=== PATIENT | male | born 1925 | race Caucasian/White ===

== ENCOUNTER 2016-06-13 13:26 | Inpatient (IN) | payer MEDICARE ==
[2016-06-13] VITALS (8 sets, daily range): BP systolic 97–110; BP diastolic 59–72; PULSE 80–97; RESP 18–28; O2SAT 88–98
[~2016-06-13] VITALS: Ht 175.3 cm; Wt 73.4 kg
[~2016-06-13 13:26] MED LIST: Ketamine 10 mg/mL 20 mL Inj ONE; fentaNYL-PF 50 mCg/mL 2 mL Inj ONE
[2016-06-13 14:08] LABS: BASOPHILS % (AUTO) 0.1 % (0-3); EOSINOPHILS % (AUTO) 0 % (0-5); MONOCYTES % (AUTO) 5.1 % (4-12); Mean Corpuscular Hemoglobin 30.5 pg (27.0-35.0); Mean Corpuscular Volume 93.5 fL (81-100); Platelet Count 124 bil/L (150-400)
--- NOTE | 2016-06-13 14:22 | ED.REPORT ---
HPI-General Illness Date of Service Jun 13, 2016 ED Provider: Peewee Loza DO Patient is an 89 year old male who presents to the ED via EMS s/p an unwitnessed ground level fall. He was using his walker when he bumped into something, tripped, and fell. Associated symptoms include left hip pain. He denies head trauma, neck pain, LOC, or any other symptoms. He is not on blood thinners but does take 81 mg aspirin every day. He denies being sick recently. Per family, his speech is slow and cognition is slightly altered. His caregivers have all had the flu. Nursing Notes Stated Complaint: GROUND LEVEL FALL Chief Complaint: Multiple Trauma/Fall Nursing Notes Reviewed: Yes Allergies: Coded Allergies: No Known Allergies (Unverified , 06/13/16) No Active Prescriptions or Reported Meds General Time Seen by MD: 14:18 Chief Complaint Other (L hip pain) Hx Obtained From: Patient Arrived By: Ambulance Past Medical History Past Medical History Denies Past Surgical History Denies Smoking History Unknown if Ever Smoker Social History Other Social History: Good social support, Ambulatory Status Walker Review of Systems Full Review of Systems Musculoskeletal: Reports: Joint pain (L hip), Denies: Neck pain Neurologic: Denies: Change LOC, Headache Complete sys rev & neg: except as marked. Physical Exam Vital Signs Vital Signs Date Time Temp Pulse Resp B/P Pulse Ox O2 Delivery O2 Flow Rate FiO2 06/13/16 16:24 87 26 105/65 97 Nasal Cannula 3 06/13/16 16:08 85 23 104/59 97 Nasal Cannula 3 06/13/16 15:07 82 23 97/69 98 Nasal Cannula 3 06/13/16 14:43 82 28 101/60 96 Nasal Cannula 3 06/13/16 13:56 94 28 100/72 95 Nasal Cannula 3 06/13/16 13:27 36.9 97 20 110/70 88 Room Air Initial VS: Reviewed General/Constitutional: Well-developed, Well-nourished Head / Eyes: Atraumatic, Normocephalic Neck: Full range of motion Skin: Warm, Dry Neurologic: Alert, Oriented, Nonfocal Psychiatric: Mood/affect normal, Behavior normal, Normal thought content Resp Distress / Stridor: Positive: Resp distress mild Hypoxic Left Hip: Positive: Tenderness present... L hip is neurovascularly intact. Pain with axial rotaion. Interpretation & Diagnostics Lab Results Interpretation Result Diagram: 06/13/16 1340 06/13/16 1340 Test 06/13/16 13:40 White Blood Count 14.7th/mm3 (3.8-10.1) Red Blood Count 4.46mil/mm3 (4.40-5.80) Hemoglobin 13.6g/dL (13.8-17.2) Hematocrit 41.7% (41.0-50.0) Mean Corpuscular Volume 93.5fL (81-100) Mean Corpuscular Hemoglobin 30.5pg (27.0-35.0) Mean Corpuscular Hemoglobin Concent 32.6% (32.0-37.0) Red Cell Distribution Width 13.2% (12.3-15.4) Platelet Count 124bil/L (150-400) Neutrophils (%) (Auto) 91.0% (40-74) Lymphocytes (%) (Auto) 3.3% (14-46) Monocytes (%) (Auto) 5.1% (4-12) Eosinophils (%) (Auto) 0% (0-5) Basophils (%) (Auto) 0.1% (0-3) Sodium Level 139mEq/L (134-144) Potassium Level 4.0mEq/L (3.5-5.2) Chloride Level 101mEq/L (97-108) Carbon Dioxide Level 25mmol/L (18-29) Blood Urea Nitrogen 19mg/dL (8-27) Creatinine 0.62mg/dL (0.76-1.27) Estimat Glomerular Filtration Rate 130mL/min (>59) Glucose Level 129mg/dL (60-99) Lactic Acid Level 2.4mmol/L (0.4-2.0) Calcium Level 8.8mg/dL (8.5-10.1) Total Bilirubin 0.6mg/dL (0.0-1.2) Aspartate Amino Transf (AST/SGOT) 34U/L (0-50) Alanine Aminotransferase (ALT/SGPT) 18U/L (0-44) Alkaline Phosphatase 98U/L (25-160) Troponin T 0.025ug/L (0.0-0.011) Pro-B-Type Natriuretic Peptide 920.1pg/mL (0-486) Total Protein 6.9g/dL (6.4-8.4) Albumin 3.5g/dL (3.4-5.0) Lab Results Interpretation: Flu A + ECG Interpretation ECG Interpretation: Sinus rate 88 Atrial premature complex Abnormal R wave progression, early transition. Time: 14:19 Interpreted by: ED physician X-Ray Chest Interpretation Chest Xray Interpretation: IMPRESSION: 1. Right greater than left interstitial prominence probable with atypical pneumonia versus pulmonary fibrosis. Please correlate with clinical data. 2. No acute traumatic injury identified. Dictated by: Charlotte Macedo MD, PhD on 06/13/2016 at 14:50 Approved by: Charlotte Macedo MD, PhD on 06/13/2016 at 14:50 View: Portable, 1 view Interpretation / Wet Read by: Interpret - Radiologist X-Ray Interpretation Xray Interpretation: IMPRESSION: Transcervical left hip fracture. Dictated by: Charlotte Macedo MD, PhD on 06/13/2016 at 14:49 Approved by: Charlotte Macedo MD, PhD on 06/13/2016 at 14:49 X-Ray Ordered: Hip left Interpretation / Wet Read by: Interpret - Radiologist Re-Eval/Medical Decision Med Decision/Clinical Course Hip fracture likely due to influenza a and possibly pneumonia. Patient will be admitted. Time of Eval: 15:00 Re-Evaluation/Progress Note: Discussed imaging results and desire for admission. Patient understands and agrees with plan. All questions addressed at this time. 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 Accepts admit Counseled Regarding: Diagnosis, Lab results, Need for admission Discharge & Departure Primary Impression: Hip fracture, left Encounter type: initial encounter Additional Impressions: Pneumonia Pneumonia type: due to unspecified organism Laterality: unspecified laterality Lung location: unspecified part of lung Qualified Code: B99.9 - Unspecified infectious disease Influenza A Hypoxia Disposition: ADMITTED TO HOSPITAL Referrals: Eliud Boston MD (PCP) Scribe Attestation Portions of this note were transcribed by Mani Jerome. IDr. Loza personally performed the history, physical exam and medical decision-making; I reviewed and confirmed the accuracy of the information in the transcribed note. Signed by: Mani Jerome 06/13/16, 1394 copies to: Eliud Boston MD, Timothy S DO Jun 13, 2016 14:22 MANI JEROME Jun 13, 2016 14:54
[2016-06-13 14:34] LABS: TROPONIN T 0.025 ug/L (0.0-0.011)
--- NOTE | 2016-06-13 14:50 | DRSVH ---
PROCEDURE: X-RAY PELVIS W/LAT HIP (LT) ([id number]) INDICATIONS: LEFT HIP PAIN TECHNIQUE: AP pelvis with lateral view(s) of the left hip(s). COMPARISON: None. FINDINGS: Bones: Transcervical left hip fracture is noted. The there is mild varus angulation and proximal disp lacement of the distal fracture fragment. Soft tissues: The visualized bowel gas pattern is normal. No suspicious soft tissue calcifications. IMPRESSION: Transcervical left hip fracture. Dictated by: Charlotte Macedo MD, PhD on 06/13/2016 at 14:49 Approved by: Charlotte Macedo MD, PhD on 06/13/2016 at 14:49
--- NOTE | 2016-06-13 14:52 | DRSVH ---
PROCEDURE: X-RAY CHEST ONE VIEW, PORTABLE ([id number]) INDICATIONS: Tachypnic TECHNIQUE: One view of the chest was acquired. COMPARISON: None. FINDINGS: Surgical changes and devices: None. Lungs and pleura: No pleural effusions or pneumothorax. Interstitial prominence the lungs bilaterall y right greater than left represent atypical pneumonia or chronic pulmonary fibrosis. Mediastinum: Mediastinal contours appear normal. Heart size is normal. Bones and chest wall: No suspicious bony lesions. Overlying soft tissues appear unremarkable. IMPRESSION: 1. Right greater than left interstitial prominence probable with atypical pneumonia versus pulmonary fibrosis. Please correlate with clinical data. 2. No acute traumatic injury identified. Dictated by: Charlotte Macedo MD, PhD on 06/13/2016 at 14:50 Approved by: Charlotte Macedo MD, PhD on 06/13/2016 at 14:50
[2016-06-13] MEDS ORDERED: Ondansetron 2 mg/mL 2 mL Inj IVPUSH PRN ×2 (15:00→18:05)
[2016-06-13] MEDS ORDERED: 0.9% Sodium Chloride 1,000 ML IV ONE (15:15)
[2016-06-13] MEDS ORDERED: 0.9% Sodium Chloride 1,000 ML IV SCH ×2 (15:15→18:01)
[2016-06-13] MEDS ORDERED: Azithromycin Inj 500 MG in Dextrose 5% w/Vial Mate 250 ML IV ONE (15:35)
[2016-06-13] MEDS ORDERED: cefTRIAXone Inj 2,000 MG in IV Premix 1 EACH IV ONE (15:35)
[2016-06-13] MEDS ORDERED: Alum-Mag Hydrox-Simeth 30 mL Suspension PO PRN ×2 (18:05→20:30)
--- NOTE | 2016-06-13 18:54 | DRSVH ---
PROCEDURE: CT HIP LEFT W/O CONTRAST ([id number]) INDICATIONS: Left hip fracture. TECHNIQUE: Noncontrast 3 mm axial sections acquired through the bony pelvis. Additional 3 mm axial sections acq uired through the symptomatic hip joint, with coronal and sagittal reformats. COMPARISON: [facility], CR, XR HIP 2VW LT, 06/13/2016, 17:24. FINDINGS: Image quality: Excellent. Bones: There is a subcapital fracture of the left femoral neck with impaction by approximately 1 cm. There is diffuse osteopenia. No definite additional fractures. There is osteophytosis of the left femoral head neck junction a mild superior joint space narrowing is noted. Visualized lumbar spine d emonstrates degenerative changes including moderate degenerative disc disease at L5-S1. Soft tissues: No free fluid within the visualized pelvis. There is a contour irregularity on the pos terior bladder compatible with a bladder diverticulum. Visualized bowel loops appear normal in calib er. No discrete soft tissue hematomas identified. IMPRESSION: 1. Impacted subcapital left femoral neck fracture. Dictated by: Kendell Sosa M.D. on 06/13/2016 at 18:52 Approved by: Kendell Sosa M.D. on 06/13/2016 at 18:52
--- NOTE | 2016-06-13 20:26 | PCM.HPMED ---
Subjective Date of Service Jun 13, 2016 Primary Provider: Admitting Physician: Naveed Herrera MD Primary Care Physician: Eliud Boston MD Attending Physician: Naveed Herrera MD Chief Complaint: Fell and broke his left hip HISTORY was OBTAINED FROM PATIENT / [employer] NOTES History of present illness 89-year-old male, uses walker, bumped into something , fell on his left hip. no associated malaise recently. He denies SOB/cough/ chest pain. Pt has obvious loose cough on exam. He is the sole caregiver of who was admitted w/ fever. likely an inaccurate historian. In ER, 88% RA, mildly elevated trop, Influenza A positive, infiltrates on chest x-ray. s/p 1L NS bolused w/ stable BP. On the talley, throughout past 8 hours, IVF were changed/increased, though HDS in the talley, Duonebs received. 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 for fever No Known Allergies (Unverified , 06/13/16) No medications Past Medical History denies Past Surgical History Denies Allergies Coded Allergies: No Known Allergies (Unverified , 06/13/16) PMH Social History Smoking Status: Unknown if Ever Smoker Exam Vital Signs Vital Sign - Last Date Time Temp Pulse Resp B/P Pulse Ox O2 Delivery O2 Flow Rate FiO2 06/13/16 18:41 36.3 80 18 110/61 91 Nasal Cannula 2.00 Lab and Diagnostics Labs Exam on admission 2-3L NC, loose cough, wheeze right greater than left NAD A and O x 3 mood affect WNL NC/AT no icterus no injected eyes EOMI PERRL /no pharyngeal lesions/ no oral lesions / hearing intact Supple neck equal chest rise / no accessory muscle use / speaks in full sentences / no rrw RRR S1 S2 / no mrg / 2+ radial pulses Soft nt nd + BS no hepatosplenomegaly No edema no cyanosis no ecchymosis thighs No rash / no jaundice GARRETT 2+ DP bilateral pulses EKG sinus arrythmia 88 UA pending Trop elevated x 1 lactic acidosis resolved procalcitonin pending sputum cx pending PROCEDURE: X-RAY CHEST ONE VIEW, PORTABLE ([id number]) INDICATIONS: Tachypnic TECHNIQUE: One view of the chest was acquired. COMPARISON: None. FINDINGS: Surgical changes and devices: None. Lungs and pleura: No pleural effusions or pneumothorax. Interstitial prominence the lungs bilaterally right greater than left represent atypical pneumonia or chronic pulmonary fibrosis. Mediastinum: Mediastinal contours appear normal. Heart size is normal. Bones and chest wall: No suspicious bony lesions. Overlying soft tissues appear unremarkable. IMPRESSION: 1. Right greater than left interstitial prominence probable with atypical pneumonia versus pulmonary fibrosis. Please correlate with clinical data. 2. No acute traumatic injury identified. PROCEDURE: CT HIP LEFT W/O CONTRAST ([id number]) INDICATIONS: Left hip fracture. TECHNIQUE: Noncontrast 3 mm axial sections acquired through the bony pelvis. Additional 3 mm axial sections acquired through the symptomatic hip joint, with coronal and sagittal reformats. COMPARISON: [facility], CR, XR HIP 2VW LT, 06/13/2016, 17:24. FINDINGS: Image quality: Excellent. Bones: There is a subcapital fracture of the left femoral neck with impaction by approximately 1 cm. There is diffuse osteopenia. No definite additional fractures. There is osteophytosis of the left femoral head neck junction a mild superior joint space narrowing is noted. Visualized lumbar spine demonstrates degenerative changes including moderate degenerative disc disease at L5-S1. Soft tissues: No free fluid within the visualized pelvis. There is a contour irregularity on the posterior bladder compatible with a bladder diverticulum. Visualized bowel loops appear normal in caliber. No discrete soft tissue hematomas identified. IMPRESSION: 1. Impacted subcapital left femoral neck fracture. Result Diagram: 06/13/16 1340 06/13/16 1340 Assessment & Plan Active issues and reason for admission 89-year-old male with left hip fracture, concurrent pulmonary infiltrates with influenza A positive, anticipate delay in orthopedic repair due to pneumonia/ influenza, high aspiration risk based on loose cough, hemodynamically stable. -- Dr. Alex Peter orthopedics -- UA pending Influenza, infiltrates -- Tamiflu / rocephine / azithro / duonebs / incentive spirometer -- pending sputum culture elevated trop, sinus arrythmia IVF were increased during the night, s/p 1L boluse in ER -- pending BNP, monitor for fluid overload -- trend trop -- monitor for evidence for a fib Chronic issues known prior to admission, present on admission patient indicated none, likely inaccurate historian Diet regular DVT prophylaxis lovenox Code DNR Disposition inpatient. has been admitted for fever. 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 Assessment and plan were discussed with patient Naveed Herrera MD Jun 13, 2016 20:26 Naveed Herrera MD Jun 13, 2016 20:26
[2016-06-13] MEDS ORDERED: D5 0.45% NaCl + KCl 20 mEq/L 500 ML IV SCH (20:30)
[2016-06-13] MEDS: Albuterol-Ipratropium 3 mL Inhalation Solution NEB SCH (22:47)
[2016-06-13] MEDS ORDERED: Adenosine 3 mg/mL 2 mL Inj IVPUSH ONE (22:56)
[2016-06-14] VITALS (16 sets, daily range): BP systolic 94–119; BP diastolic 60–75; PULSE 65–168; RESP 18–20; O2SAT 90–100
[2016-06-14] MEDS ORDERED: 0.9% Sodium Chloride 1,000 ML IV SCH (00:40)
--- NOTE | 2016-06-14 00:58 | CONS ---
[address] [address] CONSULTATION REPORT PATIENT: SATURNINO RUBIO : 1925 MR#: [id number] ADMIT: 06/13/2016 JOB ID: [id number] DATE OF SERVICE: 06/14/2015 ICD-10 CODE: 94805-03. HISTORY OF PRESENT ILLNESS: This is an 89-year-old male who had tripped and had a ground level fall, and he bumped into something, sustaining an impacted left femoral neck fracture. Denied any loss of consciousness. The patient has recently had the flu. PAST MEDICAL HISTORY: The patient denies any prior surgeries. SOCIAL HISTORY: He is . Lives with his . He normally ambulates with a walker. Smoking history unknown. ALLERGIES: The patient has no known allergies. REVIEW OF SYSTEMS: Pertinent for left hip pain. Respiratory: Has some shortness of breath with pulmonary infiltrates and recent flu. Heart: No chest pain. GI: No nausea, vomiting. : No dysuria. PHYSICAL EXAMINATION: A 71 kg male, 175 cm. Blood pressure is 116/69, temperature is 99.7, pulse 88. Pulse ox is 91% O2 on 2 L. Left leg is not obviously shortened. He is resting comfortably in bed. The left hip skin is dry and intact. The patient is able to move both upper and lower extremities. Has pain with any attempted hip motion but he is able to move his feet. The chest x-ray shows that the patient does have infiltrates bilaterally right worse than left. X-rays of the left of the pelvis and left hip show that he has an impacted left femoral neck fracture. CT scan also shows an impacted left femoral neck fracture. White count 14,700, hemoglobin 13.6, hematocrit 41.7; 91% neutrophils. Sodium 139, potassium 4.0 chloride 101, CO2 25, BUN 19, creatinine 0.62. Random glucose is 129. Lactic acid elevated at 2.4. Troponin elevated at 0.28. [id number] protein is elevated at 920.1. IMPRESSION: 1. Impacted left femoral neck fracture. 2. Pneumonia with underlying influenza. PLAN: The patient currently is on Tamiflu for documented influenza from a mouth swab. He also is febrile with decreased oxygenation on his pulse ox. He also has elevated BNP and elevated troponin levels. Lactic acid is also elevated. The patient is not stable from a medical standpoint to proceed with surgical intervention tomorrow. Discussed the case with the medical physician that admitted the patient. Hopefully, the patient may be able to be cleared sometime later this week. He certainly could be done sometime in the afternoon on or Monday if he clinically improves. Patient needs to remain at strict bed rest. I suggest that they order a baseline PT, PTT and INR. He also will need to be typed and screened pending surgery. Will be followed as an Orthopedic consult.
[2016-06-14] MEDS: 0.9% Sodium Chloride 500 ML IV SCH ×3 (02:34→15:54)
[2016-06-14 03:00] LABS: BASOPHILS % (AUTO) 0.1 % (0-3); EOSINOPHILS % (AUTO) 0 % (0-5); MONOCYTES % (AUTO) 4.1 % (4-12); Mean Corpuscular Hemoglobin 30.2 pg (27.0-35.0); Mean Corpuscular Volume 95.8 fL (81-100); NEUTROPHILS % (AUTO) 88.6 % (40-74); Platelet Count 96 bil/L (150-400)
--- NOTE | 2016-06-14 03:07 | NUR ---
ADMIT from ED Patient arrived 1840 from ED, 3L O2 NC, NS @ 100ml/hr per report. VSS, Tele on @ 0045. NPO changed to general diet as surgery cancelled r/t positive for influenza. Confusion with fall history, alert to self and place. 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
[2016-06-14] MEDS: Albuterol-Ipratropium 3 mL Inhalation Solution NEB SCH ×4 (07:43→20:07)
--- NOTE | 2016-06-14 08:00 | PCM.PNMED ---
Subjective Date of Service Jun 14, 2016 Subjective Patient is in bed and alert. He denies any chest pain. Does have a cough. Patient does have a history of smoking but quit about age 42. Denies any fevers or chills. Exam Vital Signs Vital Sign - Last Date Time Temp Pulse Resp B/P Pulse Ox O2 Delivery O2 Flow Rate FiO2 06/14/16 07:46 72 18 97 Nasal Cannula 2.00 06/14/16 05:43 37.0 119/73 Intake and Output 06/13/16 06/13/16 06/14/16 Cumulative From/Thru 15:00 23:00 07:00 06/13/16 13:27 - 06/14/16 06:24 Intake Total 2000 ml 1713 ml 3713 ml Balance 2000 ml 1713 ml 3713 ml Intake Oral 100 ml 100 ml IV Total 2000 ml 1613 ml 3613 ml # Voids 1 1 Exam Head: Normocephalic atraumatic Chest: Diffuse rhonchi noted Cor: Regular rate and rhythm S1-S2 Abdomen: Soft nontender bowel sounds present Extremities: No pedal edema bilaterally Lab and Diagnostics Laboratory Tests 72 Hours Test 06/13/16 13:40 06/14/16 00:50 06/14/16 02:35 White Blood Count 14.7th/mm3 (3.8-10.1) 10.4th/mm3 (3.8-10.1) Red Blood Count 4.46mil/mm3 (4.40-5.80) 4.04mil/mm3 (4.40-5.80) Hemoglobin 13.6g/dL (13.8-17.2) 12.2g/dL (13.8-17.2) Hematocrit 41.7% (41.0-50.0) 38.7% (41.0-50.0) Mean Corpuscular Volume 93.5fL (81-100) 95.8fL (81-100) Mean Corpuscular Hemoglobin 30.5pg (27.0-35.0) 30.2pg (27.0-35.0) Mean Corpuscular Hemoglobin Concent 32.6% (32.0-37.0) 31.5% (32.0-37.0) Red Cell Distribution Width 13.2% (12.3-15.4) 13.5% (12.3-15.4) Platelet Count 124bil/L (150-400) 96bil/L (150-400) Neutrophils (%) (Auto) 91.0% (40-74) 88.6% (40-74) Lymphocytes (%) (Auto) 3.3% (14-46) 7.1% (14-46) Monocytes (%) (Auto) 5.1% (4-12) 4.1% (4-12) Eosinophils (%) (Auto) 0% (0-5) 0% (0-5) Basophils (%) (Auto) 0.1% (0-3) 0.1% (0-3) Sodium Level 139mEq/L (134-144) 139mEq/L (134-144) Potassium Level 4.0mEq/L (3.5-5.2) 4.3mEq/L (3.5-5.2) Chloride Level 101mEq/L (97-108) 101mEq/L (97-108) Carbon Dioxide Level 25mmol/L (18-29) 28mmol/L (18-29) Blood Urea Nitrogen 19mg/dL (8-27) 21mg/dL (8-27) Creatinine 0.62mg/dL (0.76-1.27) 0.61mg/dL (0.76-1.27) Estimat Glomerular Filtration Rate 130mL/min (>59) 132mL/min (>59) Glucose Level 129mg/dL (60-99) 106mg/dL (60-99) Hemoglobin A1c 5.5% (4.8-5.6) Lactic Acid Level 2.4mmol/L (0.4-2.0) 1.8mmol/L (0.4-2.0) Calcium Level 8.8mg/dL (8.5-10.1) 8.0mg/dL (8.5-10.1) Magnesium Level 1.8mg/dL (1.6-2.6) Total Bilirubin 0.6mg/dL (0.0-1.2) 0.3mg/dL (0.0-1.2) Aspartate Amino Transf (AST/SGOT) 34U/L (0-50) 38U/L (0-50) Alanine Aminotransferase (ALT/SGPT) 18U/L (0-44) 16U/L (0-44) Alkaline Phosphatase 98U/L (25-160) 77U/L (25-160) Troponin T 0.025ug/L (0.0-0.011) 0.021ug/L (0.0-0.011) Pro-B-Type Natriuretic Peptide 920.1pg/mL (0-486) 904pg/mL (0-486) Total Protein 6.9g/dL (6.4-8.4) 5.7g/dL (6.4-8.4) Albumin 3.5g/dL (3.4-5.0) 3.2g/dL (3.4-5.0) Procalcitonin 2.57ng/mL (See Comment) Result Diagram: 06/14/1623406/14/16234 Assessment & Plan Active issues and reason for admission 89-year-old male with left hip fracture, concurrent pulmonary infiltrates with influenza A positive, anticipate delay in orthopedic repair due to pneumonia/ influenza, high aspiration risk based on loose cough, hemodynamically stable. -- Dr. Alex Peter orthopedics -- UA pending - Have ordered PT PTT labs along with type and screen Influenza, infiltrates -- Tamiflu / rocephine / azithro / duonebs / incentive spirometer -- pending sputum culture elevated trop, sinus arrythmia IVF were increased during the night, s/p 1L boluse in ER -- pending BNP, monitor for fluid overload -- trend trop -- monitor for evidence for a fib Chronic issues known prior to admission, present on admission patient indicated none, likely inaccurate historian Diet regular DVT prophylaxis lovenox Code DNR Disposition inpatient. has been admitted for fever. 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 Assessment and plan were discussed with patient Time spent 30 minutes Mirna Martinez MD Jun 14, 2016 08:00
[2016-06-14] MEDS ORDERED: Heparin 5,000 Unit/mL Inj SUBQ SCH (08:30)
[2016-06-14] MEDS ORDERED: cefTRIAXone Inj 2,000 MG in IV Premix 1 EACH IV SCH (08:30)
[2016-06-14] MEDS: Azithromycin Inj 500 MG in Dextrose 5% w/Vial Mate 250 ML IV SCH ×2 (08:35→11:15)
[2016-06-14 08:58] LABS: INR 1.1 ratio
--- NOTE | 2016-06-14 09:44 | DRSVH ---
PROCEDURE: X-RAY LEFT FEMUR, TWO VIEWS ([id number]) INDICATIONS: eval fracture TECHNIQUE: 2 views of the femur were acquired. COMPARISON: [facility], CR, XR PELVIS W LATERAL HIP LT, 06/13/2016, 14:30. [facility], CT, CT HIP LT WO CON, 06/13/2016, 18:08. [facility], CR, XR HIP 2VW LT, 017, 17:24. FINDINGS: Bones: No significant change in alignment of subcapital left femoral neck fracture. Soft tissues: No suspicious soft tissue calcifications or masses. Vascular calcifications indicate atherosclerosis. IMPRESSION: Left subcapital femoral neck fracture. Dictated by: Rodolfo BARRIENTOS Interpreted: Geetha Quijano MD on 06/14/2016 at 9:44 Transcribed by: MILY on 06/14/2016 at 9:44 Approved by: Geetha Quijano M.D. on 06/14/2016 at 16:12
--- NOTE | 2016-06-14 09:45 | DRSVH ---
PROCEDURE: X-RAY LEFT HIP COMPLETE, MINIMUM TWO VIEWS ([id number]) INDICATIONS: eval fracture TECHNIQUE: 2 views of the hip were acquired. COMPARISON: [facility], CT, CT HIP LT WO CON, 06/13/2016, 18:08. [facility], CR, XR FEMUR 2VW LT, 06/13/2016, 17:24. [facility], CR, XR PELVIS W LATERAL HIP LT, 06/13, 14:30. FINDINGS: Bones: No significant change in alignment of subcapital left femoral neck fracture. Mild superior di splacement of the distal fracture fragment with mild varus angulation. Soft tissues: No suspicious soft tissue calcifications or masses. IMPRESSION: No significant change in left subcapital femoral neck fracture. Dictated by: Rodolfo BARRIENTOS Interpreted: Geetha Quijano MD on 06/14/2016 at 9:45 Transcribed by: MILY on 06/14/2016 at 9:45 Approved by: Geetha Quijano M.D. on 06/14/2016 at 16:13
--- NOTE | 2016-06-14 11:03 | NUR ---
Late azithromycin Azithromycin late r/t faulty IV bag x2.
[2016-06-14] MEDS: HYDROmorphone 1 mg/mL Inj IVPUSH PRN ×2 (13:59→21:13)
--- NOTE | 2016-06-14 16:26 | NUR ---
Social Work Initial Assessment: SW met with patient and family at bedside to discuss discharge plan. Patient is a 89 year old male admitted on 06/13/16 for Hip fracture and pneumonia. Patient payer as Dony Melara. Patient has no fdc disability nor VA benefits. Patient PCP as MD Boston. Patient resides with in [place]. Patient is 's primary hospital cna. Patient receives caregivers services via [facility] and [facility] registry, . Patient receives services on //. Patient also current with [employer] Whe[employer]. Pharmacy of choice as [facility]. Patient has no previous HHC or SNF history. Patient has a walker at home for use. SNF options discussed with patient and family. Choice list and community resource handbook provided. Patient and family states choice to transfer to [facility] if surgery needed. Patient and family to notify surgeon of wishes for possible transfer. Due to patient and his current admissions, SW to begin SNF placement arrangements upon discharge. SW to follow for choice once determined. SW to follow. PLAN: Family wishes for [facility] transfer for surgery. SW to follow for possible SNF plans for patient and , pending PT eval/order and clinical course Lio REGAN Addendum: 06/14/16 at 1635 by OLMAN YADAV Amended: Links added.
[2016-06-14] MEDS ORDERED: Diltiazem 5 mg/mL 5 mL Inj ONE (17:54)
[2016-06-14] MEDS ORDERED: Diltiazem 5 mg/mL 5 mL Inj IVPUSH ONE (18:05)
[2016-06-14] MEDS ORDERED: Adenosine 3 mg/mL 2 mL Inj IVPUSH ONE (18:05)
[2016-06-14] MEDS ORDERED: Diltiazem Inj 125 MG in 0.9% Sodium Chloride 100 ML, Pharmacy To Mix 1 EA IV SCH (18:05)
[2016-06-14] MEDS ORDERED: Heparin 5,000 Unit/mL Inj IVPUSH PRN (18:10)
[2016-06-14] MEDS ORDERED: Heparin 5,000 Unit/mL Inj IVPUSH ONE (18:10)
[2016-06-14 18:15] LABS: BASOPHILS % (AUTO) 0.1 % (0-3); EOSINOPHILS % (AUTO) 0.4 % (0-5); MONOCYTES % (AUTO) 2.5 % (4-12); Mean Corpuscular Hemoglobin 30.6 pg (27.0-35.0); Mean Corpuscular Volume 96.1 fL (81-100); NEUTROPHILS % (AUTO) 82.2 % (40-74); Platelet Count 81 bil/L (150-400)
--- NOTE | 2016-06-14 18:29 | PCM.PNMED ---
Subjective Date of Service Jun 14, 2016 Subjective I was called and rapid respose for regular rhythm narrow complex tachycardia at 160. Adenosine 6 mg iv resulted in sinus tachycardia with frequent pACs.Pt denies chest pain or SOA. Exam Vital Signs Vital Sign - Last Date Time Temp Pulse Resp B/P Pulse Ox O2 Delivery O2 Flow Rate FiO2 06/14/16 17:50 36.7 168 18 94/60 96 Nasal Cannula 3.00 Intake and Output 06/13/16 06/13/16 06/14/16 Cumulative From/Thru 15:00 23:00 07:00 06/13/16 13:27 - 06/14/16 06:24 Intake Total 2000 ml 1713 ml 3713 ml Balance 2000 ml 1713 ml 3713 ml Intake Oral 100 ml 100 ml IV Total 2000 ml 1613 ml 3613 ml # Voids 1 1 Exam Chest: Clear to A. COR:Reglar rhythm tachycardic s murmur. Abd:soft NT BS+ Ext: No pedal edema IVs and Medications Medications Reviewed: Medications were reviewed in detail Lab and Diagnostics Result Diagram: 06/14/16 1756 06/14/16 0820 Assessment & Plan Active issues and reason for admission 89-year-old male with left hip fracture, concurrent pulmonary infiltrates with influenza A positive, anticipate delay in orthopedic repair due to pneumonia/ influenza, high aspiration risk based on loose cough, hemodynamically stable. -- Dr. Alex Peter orthopedics -- UA pending - Have ordered PT PTT labs along with type and screen Influenza, infiltrates -- Tamiflu / rocephine / azithro / duonebs / incentive spirometer -- pending sputum culture elevated trop, sinus arrythmia IVF were increased during the night, s/p 1L boluse in ER -- pending BNP, monitor for fluid overload -- trend trop -- monitor for evidence for a fib Chronic issues known prior to admission, present on admission patient indicated none, likely inaccurate historian Diet regular DVT prophylaxis lovenox Code DNR Disposition inpatient. has been admitted for fever. 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 Assessment and plan were discussed with patient Rapid response assessment and plan: Narrow complex tachycardia with iv adenosien return to sinus tach at 100 with frequent pACs. Check labs including seril troponin and stat Ddimer if neg then stop iv heparin PE protocol drip. Start PE protocol heparin drip. My concern is for PE in pt with hip fx, pneumonia and influenza. Check cxr.now. Echo in AM Time spent Critical care time spent 45 minutes Mirna Martinez MD Jun 14, 2016 18:29
[2016-06-14 18:34] LABS: D-DIMER 14.7 mg/L (<0.50)
--- NOTE | 2016-06-14 18:35 | NUR ---
tachycardia/rr code code called, team responded. m.d. to bedside. pt stable post tx. se doctor's dictation. hr running 160 sustaine shortly afte assessed by r.n.(pt had been usiing is and coughing.) dr. zhao notified, orders recd to call rr code.
--- NOTE | 2016-06-14 18:36 | DRSVH ---
PROCEDURE: X-RAY CHEST ONE VIEW, PORTABLE ([id number]) INDICATIONS: rvr a fib TECHNIQUE: One view of the chest was acquired. COMPARISON: None. FINDINGS: Surgical changes and devices: None. Lungs and pleura: No pleural effusions or pneumothorax. Moderate basilar predominant interstitial pu lmonary opacity is present, of uncertain acuity, possibly chronic. Mediastinum: Mediastinal contours appear normal. Heart size is normal. Bones and chest wall: No suspicious bony lesions. Overlying soft tissues appear unremarkable. IMPRESSION: Moderate interstitial pulmonary opacity, possibly chronic. Atypical pneumonia could also produce a similar appearance. Dictated by: Maye Perez M.D. on 06/14/2016 at 18:34 Approved by: Maye Perez M.D. on 06/14/2016 at 18:34
[2016-06-14 18:46] LABS: TROPONIN T < 0.010 ug/L (0.0-0.011)
--- NOTE | 2016-06-14 20:00 | NUR ---
order clarification spoke to Dr Atkinson. discontinued cardizem gtt. plan to start heparin gtt per DVT/PE protocol. (reported d dimer) okay to stay on [facility] with pcc status. care ongoing.
[2016-06-14] MEDS: Heparin 25K Unit/500mL 0.45 NS 25,000 UNIT in IV Premix 1 EACH IV SCH (20:38)
[2016-06-14] MEDS ORDERED: Heparin 25K Unit/500mL 0.45 NS 25,000 UNIT in IV Premix 1 EACH IV SCH (21:35)
[2016-06-14] MEDS ORDERED: Heparin Protocol Boluses IVPUSH PRN (21:35)
[2016-06-15] VITALS (22 sets, daily range): BP systolic 82–135; BP diastolic 50–87; PULSE 70–163; RESP 16–22; O2SAT 90–100
[2016-06-15 02:32] LABS: BASOPHILS % (AUTO) 0.1 % (0-3); EOSINOPHILS % (AUTO) 0.8 % (0-5); Mean Corpuscular Hemoglobin 30.2 pg (27.0-35.0); Mean Corpuscular Volume 96.3 fL (81-100); NEUTROPHILS % (AUTO) 83.3 % (40-74); Platelet Count 80 bil/L (150-400)
[2016-06-15] MEDS: 0.9% Sodium Chloride 500 ML IV SCH ×4 (02:37→18:48)
--- NOTE | 2016-06-15 02:42 | NUR ---
heparin gtt midnight ptt 253. notified dr luis. plan to cont to check ptt hourly until ptt <150 as per protocol heparin gtt stopped at 0100. vs stable. patient resting comfortably. arouses to touch. fall precautions in place. frequent checks.
[2016-06-15 03:16] LABS: TROPONIN T 0.01 ug/L (0.0-0.011)
[2016-06-15] MEDS ORDERED: Adenosine 3 mg/mL 2 mL Inj ONE (08:00)
[2016-06-15] MEDS: Albuterol-Ipratropium 3 mL Inhalation Solution NEB SCH ×4 (08:24→20:21)
[2016-06-15] MEDS ORDERED: Heparin 5,000 Unit/mL Inj SUBQ SCH (08:30)
--- NOTE | 2016-06-15 08:39 | PCM.PNMED ---
Subjective Date of Service Jun 15, 2016 Subjective Patient currently resting in bed. He denies any chest pain or shortness of breath. Exam Vital Signs Vital Sign - Last Date Time Temp Pulse Resp B/P Pulse Ox O2 Delivery O2 Flow Rate FiO2 06/15/16 08:24 36.7 71 20 118/76 100 Nasal Cannula 3.00 Intake and Output 06/14/16 06/14/16 06/15/16 Cumulative From/Thru 15:00 23:00 07:00 06/13/16 13:27 - 06/15/16 06:41 Intake Total 200 ml 1125 ml 5038 ml Output Total 427 ml 427 ml Balance 200 ml 698 ml 4611 ml Intake Oral 200 ml 150 ml 450 ml IV Total 975 ml 4588 ml Output Urine Total 427 ml 427 ml # Voids 1 2 Exam Constitutional: Elderly man who appears comfortable at this time Head: Normocephalic atraumatic Eyes: PERRLA GC EOMI Mouth: Moist mucosa Chest: Some rales at his bases bilaterally Cor: Regular rate and rhythm S1-S2 without murmur Abdomen: Soft nontender bowel sounds present Extremities: SCDs are in place no pedal edema noted Neuro: Alert and oriented 3, motor strength intact bilaterally Lab and Diagnostics Laboratory Tests 72 Hours Test 06/13/16 13:40 06/14/16 00:50 06/14/16 02:35 06/14/16 08:20 White Blood Count 14.7th/mm3 (3.8-10.1) 10.4th/mm3 (3.8-10.1) Red Blood Count 4.46mil/mm3 (4.40-5.80) 4.04mil/mm3 (4.40-5.80) Hemoglobin 13.6g/dL (13.8-17.2) 12.2g/dL (13.8-17.2) Hematocrit 41.7% (41.0-50.0) 38.7% (41.0-50.0) Mean Corpuscular Volume 93.5fL (81-100) 95.8fL (81-100) Mean Corpuscular Hemoglobin 30.5pg (27.0-35.0) 30.2pg (27.0-35.0) Mean Corpuscular Hemoglobin Concent 32.6% (32.0-37.0) 31.5% (32.0-37.0) Red Cell Distribution Width 13.2% (12.3-15.4) 13.5% (12.3-15.4) Platelet Count 124bil/L (150-400) 96bil/L (150-400) Neutrophils (%) (Auto) 91.0% (40-74) 88.6% (40-74) Lymphocytes (%) (Auto) 3.3% (14-46) 7.1% (14-46) Monocytes (%) (Auto) 5.1% (4-12) 4.1% (4-12) Eosinophils (%) (Auto) 0% (0-5) 0% (0-5) Basophils (%) (Auto) 0.1% (0-3) 0.1% (0-3) Sodium Level 139mEq/L (134-144) 139mEq/L (134-144) 140mEq/L (134-144) Potassium Level 4.0mEq/L (3.5-5.2) 4.3mEq/L (3.5-5.2) 4.1mEq/L (3.5-5.2) Chloride Level 101mEq/L (97-108) 101mEq/L (97-108) 102mEq/L (97-108) Carbon Dioxide Level 25mmol/L (18-29) 28mmol/L (18-29) 27mmol/L (18-29) Blood Urea Nitrogen 19mg/dL (8-27) 21mg/dL (8-27) 20mg/dL (8-27) Creatinine 0.62mg/dL (0.76-1.27) 0.61mg/dL (0.76-1.27) 0.60mg/dL (0.76-1.27) Estimat Glomerular Filtration Rate 130mL/min (>59) 132mL/min (>59) 135mL/min (>59) Glucose Level 129mg/dL (60-99) 106mg/dL (60-99) 109mg/dL (60-99) Hemoglobin A1c 5.5% (4.8-5.6) Lactic Acid Level 2.4mmol/L (0.4-2.0) 1.8mmol/L (0.4-2.0) Calcium Level 8.8mg/dL (8.5-10.1) 8.0mg/dL (8.5-10.1) 8.0mg/dL (8.5-10.1) Magnesium Level 1.8mg/dL (1.6-2.6) Total Bilirubin 0.6mg/dL (0.0-1.2) 0.3mg/dL (0.0-1.2) 0.3mg/dL (0.0-1.2) Aspartate Amino Transf (AST/SGOT) 34U/L (0-50) 38U/L (0-50) 46U/L (0-50) Alanine Aminotransferase (ALT/SGPT) 18U/L (0-44) 16U/L (0-44) 17U/L (0-44) Alkaline Phosphatase 98U/L (25-160) 77U/L (25-160) 80U/L (25-160) Troponin T 0.025ug/L (0.0-0.011) 0.021ug/L (0.0-0.011) < 0.010ug/L (0.0-0.011) Pro-B-Type Natriuretic Peptide 920.1pg/mL (0-486) 904pg/mL (0-486) Total Protein 6.9g/dL (6.4-8.4) 5.7g/dL (6.4-8.4) 6.2g/dL (6.4-8.4) Albumin 3.5g/dL (3.4-5.0) 3.2g/dL (3.4-5.0) 3.2g/dL (3.4-5.0) Procalcitonin 2.57ng/mL (See Comment) 3.46ng/mL (See Comment) Prothrombin Time 11.8sec (8.1-12.5) Prothromb Time International Ratio 1.10ratio Activated Partial Thromboplast Time 31.6sec (22.8-33.0) Test 06/14/16 13:45 06/14/16 17:56 06/14/16 19:43 06/15/16 00:00 Troponin T < 0.010ug/L (0.0-0.011) < 0.010ug/L (0.0-0.011) < 0.010ug/L (0.0-0.011) 0.010ug/L (0.0-0.011) White Blood Count 8.4th/mm3 (3.8-10.1) Red Blood Count 4.08mil/mm3 (4.40-5.80) Hemoglobin 12.5g/dL (13.8-17.2) Hematocrit 39.2% (41.0-50.0) Mean Corpuscular Volume 96.1fL (81-100) Mean Corpuscular Hemoglobin 30.6pg (27.0-35.0) Mean Corpuscular Hemoglobin Concent 31.9% (32.0-37.0) Red Cell Distribution Width 13.5% (12.3-15.4) Platelet Count 81bil/L (150-400) Neutrophils (%) (Auto) 82.2% (40-74) Lymphocytes (%) (Auto) 14.7% (14-46) Monocytes (%) (Auto) 2.5% (4-12) Eosinophils (%) (Auto) 0.4% (0-5) Basophils (%) (Auto) 0.1% (0-3) Activated Partial Thromboplast Time 33.7sec (22.8-33.0) 253.0sec (22.8-33.0) D-Dimer 14.7mg/L (<0.50) Sodium Level 138mEq/L (134-144) Potassium Level 3.9mEq/L (3.5-5.2) Chloride Level 101mEq/L (97-108) Carbon Dioxide Level 26mmol/L (18-29) Blood Urea Nitrogen 19mg/dL (8-27) Creatinine 0.53mg/dL (0.76-1.27) Estimat Glomerular Filtration Rate 156mL/min (>59) Glucose Level 105mg/dL (60-99) Calcium Level 8.0mg/dL (8.5-10.1) Total Bilirubin 0.3mg/dL (0.0-1.2) Aspartate Amino Transf (AST/SGOT) 50U/L (0-50) Alanine Aminotransferase (ALT/SGPT) 16U/L (0-44) Alkaline Phosphatase 76U/L (25-160) Total Protein 5.9g/dL (6.4-8.4) Albumin 2.9g/dL (3.4-5.0) Hold Khan Top Tube Received (Received) Test 06/15/16 02:13 06/15/16 05:42 White Blood Count 7.6th/mm3 (3.8-10.1) Red Blood Count 3.78mil/mm3 (4.40-5.80) Hemoglobin 11.4g/dL (13.8-17.2) Hematocrit 36.4% (41.0-50.0) Mean Corpuscular Volume 96.3fL (81-100) Mean Corpuscular Hemoglobin 30.2pg (27.0-35.0) Mean Corpuscular Hemoglobin Concent 31.3% (32.0-37.0) Red Cell Distribution Width 13.6% (12.3-15.4) Platelet Count 80bil/L (150-400) Neutrophils (%) (Auto) 83.3% (40-74) Lymphocytes (%) (Auto) 12.7% (14-46) Monocytes (%) (Auto) 3.0% (4-12) Eosinophils (%) (Auto) 0.8% (0-5) Basophils (%) (Auto) 0.1% (0-3) Activated Partial Thromboplast Time 127.7sec (22.8-33.0) 68.6sec (22.8-33.0) Sodium Level 141mEq/L (134-144) Potassium Level 4.1mEq/L (3.5-5.2) Chloride Level 106mEq/L (97-108) Carbon Dioxide Level 26mmol/L (18-29) Blood Urea Nitrogen 18mg/dL (8-27) Creatinine 0.48mg/dL (0.76-1.27) Estimat Glomerular Filtration Rate 174mL/min (>59) Glucose Level 117mg/dL (60-99) Calcium Level 7.7mg/dL (8.5-10.1) Total Bilirubin 0.2mg/dL (0.0-1.2) Aspartate Amino Transf (AST/SGOT) 45U/L (0-50) Alanine Aminotransferase (ALT/SGPT) 15U/L (0-44) Alkaline Phosphatase 67U/L (25-160) Troponin T 0.010ug/L (0.0-0.011) Total Protein 5.1g/dL (6.4-8.4) Albumin 2.7g/dL (3.4-5.0) Result Diagram: 06/15/1621206/15/16212 X-Rays, CTs and MRIs Patient Name: SATURNINO RUBIO MR#: [id number] Location: [facility] Ordering Phys: Mirna Martinez MD Date of Service: 06/14/161807 PROCEDURE: X-RAY CHEST ONE VIEW, PORTABLE ([id number]) INDICATIONS: rvr a fib TECHNIQUE: One view of the chest was acquired. COMPARISON: None. FINDINGS: Surgical changes and devices: None. Lungs and pleura: No pleural effusions or pneumothorax. Moderate basilar predominant interstitial pulmonary opacity is present, of uncertain acuity, possibly chronic. Mediastinum: Mediastinal contours appear normal. Heart size is normal. Bones and chest wall: No suspicious bony lesions. Overlying soft tissues appear unremarkable. IMPRESSION: Moderate interstitial pulmonary opacity, possibly chronic. Atypical pneumonia could also produce a similar appearance. Dictated by: Maye Perez M.D. on 06/14/2016 at 18:34 Approved by: Maye Perez M.D. on 06/14/2016 at 18:34 Assessment & Plan Active issues and reason for admission 89-year-old male with left hip fracture, concurrent pulmonary infiltrates with influenza A positive, anticipate delay in orthopedic repair due to pneumonia/ influenza, high aspiration risk based on loose cough, hemodynamically stable. -- Dr. Alex Peter orthopedics -- pending - Have ordered PT PTT labs along with type and screen Influenza, infiltrates -- Tamiflu / rocephine / azithro / duonebs / incentive spirometer -- pending sputum culture elevated trop, sinus arrythmia IVF were increased during the night, s/p 1L boluse in ER -- pending BNP, monitor for fluid overload -- trend trop -- monitor for evidence for a fib Narrow complex tachycardia --- this episode occurred on June 13 early evening. Patient was given adenosine and With iv adenosien return to sinus tach at 100 with frequent pACs. Check labs including seril troponin and stat Ddimer if neg then stop iv heparin PE protocol drip. Start PE protocol heparin drip. My concern is for PE in pt with hip fx, pneumonia and influenza. Check cxr.now. Echo in AM of June 15 D-dimer came back elevated and so we will proceed with CT A of chest PE protocol today Patient currently is in sinus rhythm. Chronic issues known prior to admission, present on admission patient indicated none, likely inaccurate historian Diet regular DVT prophylaxis lovenox Code DNR Disposition inpatient. has been admitted for fever. 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 Assessment and plan were discussed with patient Time spent 30 minutes Mirna Martinez MD Jun 15, 2016 08:39
--- NOTE | 2016-06-15 09:25 | PCM.PNORTH ---
Subjective Date of Service: Jun 15, 2016 Visit Information: Reason for Visit Hip Fx,Pneumonia Surgery/Surgery Date Post-Op Day # Date of Admission: Jun 13, 2016 at 16:52 Hospital Day # Subjective Foundation awake and alert this morning and communicative. Patient is cognitively appropriate and very pleasant. I reassured patient that his is safe and in good care on the [facility] that he resides in and we have discussed his request for transfer to [facility] in [place]. I have explained to patient this morning that there are no beds available there and that his transfer would likely become his financial responsibility. He understands this and is perfectly willing to have his hip repaired here and the transfer was simply an issue convenience for the family. Postop General: No Complaints, No Shortness of Breath, No Chest Pain Pain Management: IV Push Objective Exam Objective Orientation: Patient is alert and oriented 3 and very pleasant. Dressing: None Wound: None. There is no ecchymosis noted or bruising about the left hip. Compartments: Thigh and calf are soft and nontender. Mobility/sensation: Normal and sensation are intact at left lower extremity distally Abduction wedge: None AMANDA hose: None Arvizu: Present and working Drain: None Gait: No gait at this time secondary to nonweightbearing at the left lower extremity. Vital Signs and I/O Vital Sign - Last Date Time Temp Pulse Resp B/P Pulse Ox O2 Delivery O2 Flow Rate FiO2 06/15/16 08:26 70 16 Nasal Cannula 2.00 06/15/16 08:24 36.7 118/76 100 Intake and Output 06/14/16 06/14/16 06/15/16 Cumulative From/Thru 14:59 22:59 06:59 06/13/16 13:27 - 06/15/16 06:41 Intake Total 200 ml 1125 ml 5038 ml Output Total 427 ml 427 ml Balance 200 ml 698 ml 4611 ml Intake Oral 200 ml 150 ml 450 ml IV Total 975 ml 4588 ml Output Urine Total 427 ml 427 ml # Voids 1 2 Lab & Micro Results Laboratory Tests Test 06/14/16 13:45 06/14/16 17:56 06/14/16 19:43 06/15/16 00:00 Troponin T < 0.010ug/L (0.0-0.011) < 0.010ug/L (0.0-0.011) < 0.010ug/L (0.0-0.011) 0.010ug/L (0.0-0.011) White Blood Count 8.4th/mm3 (3.8-10.1) Red Blood Count 4.08mil/mm3 (4.40-5.80) Hemoglobin 12.5g/dL (13.8-17.2) Hematocrit 39.2% (41.0-50.0) Mean Corpuscular Volume 96.1fL (81-100) Mean Corpuscular Hemoglobin 30.6pg (27.0-35.0) Mean Corpuscular Hemoglobin Concent 31.9% (32.0-37.0) Red Cell Distribution Width 13.5% (12.3-15.4) Platelet Count 81bil/L (150-400) Neutrophils (%) (Auto) 82.2% (40-74) Lymphocytes (%) (Auto) 14.7% (14-46) Monocytes (%) (Auto) 2.5% (4-12) Eosinophils (%) (Auto) 0.4% (0-5) Basophils (%) (Auto) 0.1% (0-3) Activated Partial Thromboplast Time 33.7sec (22.8-33.0) 253.0sec (22.8-33.0) D-Dimer 14.7mg/L (<0.50) Sodium Level 138mEq/L (134-144) Potassium Level 3.9mEq/L (3.5-5.2) Chloride Level 101mEq/L (97-108) Carbon Dioxide Level 26mmol/L (18-29) Blood Urea Nitrogen 19mg/dL (8-27) Creatinine 0.53mg/dL (0.76-1.27) Estimat Glomerular Filtration Rate 156mL/min (>59) Glucose Level 105mg/dL (60-99) Calcium Level 8.0mg/dL (8.5-10.1) Total Bilirubin 0.3mg/dL (0.0-1.2) Aspartate Amino Transf (AST/SGOT) 50U/L (0-50) Alanine Aminotransferase (ALT/SGPT) 16U/L (0-44) Alkaline Phosphatase 76U/L (25-160) Total Protein 5.9g/dL (6.4-8.4) Albumin 2.9g/dL (3.4-5.0) Hold Khan Top Tube Received (Received) Test 06/15/16 02:13 06/15/16 05:42 06/15/16 08:46 White Blood Count 7.6th/mm3 (3.8-10.1) Red Blood Count 3.78mil/mm3 (4.40-5.80) Hemoglobin 11.4g/dL (13.8-17.2) Hematocrit 36.4% (41.0-50.0) Mean Corpuscular Volume 96.3fL (81-100) Mean Corpuscular Hemoglobin 30.2pg (27.0-35.0) Mean Corpuscular Hemoglobin Concent 31.3% (32.0-37.0) Red Cell Distribution Width 13.6% (12.3-15.4) Platelet Count 80bil/L (150-400) Neutrophils (%) (Auto) 83.3% (40-74) Lymphocytes (%) (Auto) 12.7% (14-46) Monocytes (%) (Auto) 3.0% (4-12) Eosinophils (%) (Auto) 0.8% (0-5) Basophils (%) (Auto) 0.1% (0-3) Activated Partial Thromboplast Time 127.7sec (22.8-33.0) 68.6sec (22.8-33.0) Sodium Level 141mEq/L (134-144) Potassium Level 4.1mEq/L (3.5-5.2) Chloride Level 106mEq/L (97-108) Carbon Dioxide Level 26mmol/L (18-29) Blood Urea Nitrogen 18mg/dL (8-27) Creatinine 0.48mg/dL (0.76-1.27) Estimat Glomerular Filtration Rate 174mL/min (>59) Glucose Level 117mg/dL (60-99) Calcium Level 7.7mg/dL (8.5-10.1) Total Bilirubin 0.2mg/dL (0.0-1.2) Aspartate Amino Transf (AST/SGOT) 45U/L (0-50) Alanine Aminotransferase (ALT/SGPT) 15U/L (0-44) Alkaline Phosphatase 67U/L (25-160) Troponin T 0.010ug/L (0.0-0.011) Total Protein 5.1g/dL (6.4-8.4) Albumin 2.7g/dL (3.4-5.0) Microbiology 06/13/16 Blood Culture - Preliminary, Resulted NO GROWTH AFTER 24 HOURS 06/13/16 Sputum Quality Screen - Final, Resulted 06/13/16 Sputum Culture - Preliminary, Resulted MODERATE NORMAL GREGORIA PRESENT Result Diagram: 06/15/16 02106/[id number] General Appearance: Alert, Oriented X3, Cooperative, No Acute Distress Extremities: No Compartment Syndrom Noted, Thigh & Calf Soft/Nontender Postop Sensory Motor: Distal Motor Intact, Movement in Toes, Distal Sensation Intact Activity: Activity per PT (patient may be seen for leg bed mobility and upper extremity work but left lower extremity and hip should be maintaining current neutral position.) Catheters: Urethral [address] Way Arvizu Assessment & Plan Impression Patient is an 89-year-old male admitted on 06/13/2016 with a left impacted femoral neck fracture. Patient is alert and oriented and communicative and very pleasant. He is concerned about his who was also admitted secondary to her debilitated state after a CVA some years ago. 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 Patient suffers from influenza and pneumonia and has had a recent run of SVT and is being worked up now for PE. Patient had been requesting transfer to [facility] but on discussion patient has no problem with receiving treatment for his hip here and states that the transfer was more about social issues and giving his family etc. Problems: Plan Postadmit day # 2 from left hip impacted femoral neck fracture occurring on . Dr. Alex Cole has consult. Weight bearing status: Nonweightbearing at this time. Mobility aid: None Immobilization: Maintain neutral position of left leg and hip Precautions: Maintain neutral position of the left leg and hip Physical therapy: Physical therapy may see patient for gentle upper extremity and upper body bed mobility but left lower extremity should be maintained in a neutral position as much as possible. Pain control: Pain control as needed per hospitalist service.. DVT prophylaxis: Continue current heparin per hospitalist service. Wound care: None Infectious DZ: None Arvizu: Present and working Dressing: None Drain: None Abduction wedge: None AMANDA hose: None Nursing communication: Nursing please maintain left hip and leg in neutral position with his little disturbances possible secondary to avoid disruption of stable fracture. 2-week follow-up: TBD 6-week follow-up: TBD Orthopedics will hold on plans to treat the left hip fracture surgically until hospitalist service has cleared patient for surgical treatment. Currently patient suffers from influenza and pneumonia with a recent run of SVT and is under workup for PE by hospitalist service. No estimate at this time regarding when patient may be a cleared for surgical treatment. Dr. Cole has been advised of current issues. Orthopedics thanks hospitalist service for their help in the medical management of this patient. Discharge plan: TBD VTE Prophylaxis: Sub-Q Heparin (Unfractionated) (per hospitalist service), Eduar Moe PA-C Jun 15, 2016 09:25
[2016-06-15] MEDS ORDERED: MeTOProlol 1 mg/mL 5 mL Inj IV ONE (10:06)
[2016-06-15] MEDS ORDERED: Diltiazem 125 mg/125 mL D5W IV SCH ×2 (10:15)
[2016-06-15] MEDS ORDERED: Diltiazem Inj 125 MG in 0.9% Sodium Chloride 100 ML, Pharmacy To Mix 1 EA IV SCH (10:15)
[2016-06-15] MEDS ORDERED: Adenosine 3 mg/mL 2 mL Inj IVPUSH ONE (10:30)
[2016-06-15] MEDS ORDERED: Adenosine 3 mg/mL 2 mL Inj IV ONE (10:30)
--- NOTE | 2016-06-15 11:00 | NUR ---
Paroxysmal Supraventricular Tachycardia (PSVT) 0720 - Sinus rhythm 80s with PACs/PVCs. Checked on him. Asymptomatic. 0932 - The Tax Services Specialist called to notify that he had 5 seconds of PSVT. Returned back to sinus rhythm 0940 (about) - The Tax Services Specialist called to notify that he had converted to and was sustaining PSVT. Asymptomatic. 0948 - Received orders from Dr. Martinez to give 6 mg of Adenosine. It was given. 0950 - Sinus tachycardia 100s. 0951 - Converted back to PSVT 160s. 0952 - Manually BP 116/62 1000 - Manually BP 82/50. PSVT 162. 1003 - 12 mg of Adenosine was ordered and given. 96% O2 saturation on 2L of O2. 1004 - Atrial fibrillation 90s. 1008 - 5 mg of Metoprolol IV was given. 1010 - Manually BP 90/50. Atrial fibrillation 84. 1014 - Converted to and remained sinus rhythm 70-90s since then. 1034 - Manually BP 111/71. Care continues.
[2016-06-15] MEDS: cefTRIAXone Inj 2,000 MG in Dextrose 5% Minibag Plus 50 ML IV SCH (11:08)
--- NOTE | 2016-06-15 11:17 | NUR ---
Telemetry Update: SVT, Conversion Pauses At baseline, patient is Sinus Rhythm 80-100s with PACs and multiform PVCs. Prior shift patient converted to SVT in the 170s at 17:35. At 18:11, patient converted to Sinus Rhythm with Adenosine following a 11 second conversion pause. This morning, patient converted back into SVT at 09:40. At 9:56 adenosine given with a brief 4s conversion pause, and brief 2AVBII 2:1, which converted back into SVT in the 170s at 09:57. Patient converted back to Sinus Rhythm at 10:14 with a Metoprolol IV push. MILTON Cruz aware of all events; monitoring closely.
--- NOTE | 2016-06-15 13:00 | NUR ---
CT About 1240 he left [facility] Because of his recent PSVT episode he was kept on a heart monitor and this nurse accompanied him. He tolerated the trip well. He returned back to [facility] about 1245 and was settled back into his room. Care continues.
--- NOTE | 2016-06-15 13:03 | DRSVH ---
PROCEDURE: CT ANGIO CHEST PULMONARY EMBOLISM ([id number]) INDICATIONS: new afib TECHNIQUE: After the administration of intravenous contrast, 2 mm thick sections acquired from the pulmonary api jeanette to the posterior costophrenic angles. 3-dimensional maximum intensity projection (MIP) coronal a nd sagittal reformats were then acquired through the thorax. For radiation dose reduction, the follo wing was used: automated exposure control, adjustment of mA and/or kV according to patient size. COMPARISON: None. FINDINGS: Image quality: Excellent. Pulmonary arteries: Pulmonary arteries are normal in size, and demonstrate no intraluminal filling d efects to suggest central pulmonary embolism. Lungs and pleura: No pneumothorax. Small bilateral pleural effusions. Moderate right and mild left de pendent air space opacity. Bilateral segmental and subsegmental mid and lower lung bronchial thickeni ng. 8mm diameter subpleural nodule within the left upper lobe laterally. Mild mid and lower lung inte rstitial pulmonary opacity, likely chronic. Bilateral anterior and posterior pleural calcifications. Central and peripheral airways are patent. Mediastinum: Heart size is normal, without pericardial effusion. There is calcification of the kenneth nary vasculature. 17 mm short axis subcarinal adenopathy. 19 mm short axis right hilar adenopathy. 17 mm short axis left hilar adenopathy. Thoracic aorta is normal in caliber and enhancement. Esophagus is normal in caliber, without hiatal hernia. Bones and chest wall: No suspicious bony lesions. Flowing anterior osteophytes within the mid and l ower thoracic spine. Ribs and thoracic spine appear intact throughout. Thyroid gland is within nan l limits as visualized. No axillary or supraclavicular adenopathy. Abdomen: Visualized upper abdominal solid organs appear normal in the early arterial phase of enhanc ement. IMPRESSION: 1. No pulmonary embolus. 2. Bilateral mid and lower lung bronchopneumonia. 3. Mediastinal and bilateral hilar adenopathy, presumably reactive. Followup chest CT with contrast i n 3 months is recommended to ensure resolution, and to exclude the less likely possibility of underly ing neoplasm. 4. 8mm diameter left upper lobe subpleural nodule, possibly related to scarring. Followup is recommen ded as below. 5. Coronary artery disease. 6. Asbestos related pleural disease. Fleischner Society criteria for SOLID lung nodule followup. Nodule size (mm)Low-risk patientHigh-risk [id number] follow-up neededFollow-up at 12 mo; if no dodge e, no further follow-up>[id number] CT at 12 mo; if no change, no further follow-up needed.Initial f ollow-up CT at 6-12 mo, then 18-24 mo if no change. >6-8Initial follow-up CT at 6-12 mo, then 18-24 mo if no change. Initial follow-up CT at 3-6 mo, then 9-12 mo and 24 mo if no change. >8Follow-up CT at 3, 9, 24 mo. Or PET and/or biopsy.Same as for low-risk pts. Dictated by: Maye Perez M.D. on 06/15/2016 at 13:01 Approved by: Maye Perez M.D. on 06/15/2016 at 13:01
--- NOTE | 2016-06-15 15:01 | NUR ---
Social Work Continued Discharge Planning: SW conducted discharge planning update. Surgery aware of wishes to transfer to [facility] for surgery. No beds available at this time. SW spoke to patient and son Hreve at bedside. Referral sent to [facility] and [facility] for possible acceptance. Referrals also sent on to same mentioned facilities. to SW to follow. PLAN: SNF, pending acceptance and clinical course. SW following. Lio REGAN
--- NOTE | 2016-06-15 15:17 | NUR ---
Faxed referral to [facility] and [facility] per SUPPORT GROUP MANAGER
[2016-06-15] MEDS: Azithromycin Inj 500 MG in Dextrose 5% w/Vial Mate 250 ML IV SCH (15:36)
--- NOTE | 2016-06-15 16:58 | NUR ---
spiritual care: routine brief visit; pt's on spiritual care referral list and pt offered some guidance about her preferences. Pt to receive caring attention from rastafarian eucharistic team and maintenance supervisor electrical support. pt appreciative--also of the [facility] sales agent financial report service connection as couple plans to move to [facility].
[2016-06-15] MEDS: HYDROmorphone 1 mg/mL Inj IVPUSH PRN (17:34)
--- NOTE | 2016-06-15 17:35 | DRSVH ---
[facility] [address] [place] [address] Echocardiogram Report Name: SATURNINO RUBIO FStudy Date: 06/15/2016 Height: 69 in Hospital Exam Location: [facility] Weight: 160 lb Gender: Male BSA: 1.9 m2 : 1925 Age: 89 yrs BP: 135/87 mmHg Reason For Study: AFIB Ordering Physician: HOSPITALIST [facility] Performed By: Mode Anders Referring Physician: Charissa MORILLO Interpretation Summary The left ventricle is normal in size. Left ventricular systolic function is normal without focal wall motion abnormalities. The ejection fraction is estimated to be 55-60%. Assessment of diastolic parameters indicates a relaxation abnormality of the left ventricle, consistent with normal filling pressures. The right ventricle is normal in size and function. The right ventricular systolic pressure is estimated at 46 mmHg assuming a right atrial pressure of 3 mm Hg. The left atrial size is normal. The right atrium is mildly dilated. There is mild mitral regurgitation. There is no other significant valvular heart disease. The ascending aorta is mildly enlarged. Procedure: A two-dimensional transthoracic echocardiogram with color flow and Doppler was performed. The study quality was technically adequate. There is no prior echocardiogram noted for this patient. The patient was fully supine during the exam. A contrast injection of Definity was performed to improve assessment of LV function. The patient was in normal sinus rhythm during the exam. Left Ventricle: The left ventricle is normal in size. There is normal left ventricular wall thickness. Left ventricular systolic function is normal without focal wall motion abnormalities. The ejection fraction is estimated to be 55-60%. Assessment of diastolic parameters indicates a relaxation abnormality of the left ventricle, consistent with normal filling pressures. Right Ventricle: The right ventricle is normal in size and function. Atria: The left atrial size is normal. The right atrium is mildly dilated. The interatrial septum is intact with no evidence for an atrial septal defect. Mitral Valve: There is a flat closure plane of the the mitral valve leaflets. There is mild mitral regurgitation. Aortic Valve: The aortic valve opens well. There is trace aortic regurgitation. Tricuspid Valve: The tricuspid valve is normal in structure and function. There is trace tricuspid regurgitation. The right ventricular systolic pressure is estimated at 46 mmHg assuming a right atrial pressure of 3 mm Hg. Pulmonic Valve: The pulmonic valve is not well visualized. There is no other significant valvular heart disease. Great Vessels: The aortic root is normal size. The ascending aorta is mildly enlarged. The pulmonary artery is normal size. The IVC is of normal diameter and collapses greater than 50% with a sniff. This suggests a low right atrial pressure of 3 mm Hg. Pericardium/ Pleura There is no pericardial effusion. There is no pleural effusion. MMode/2D Measurements & Calculations LVIDd: 5.1 cm LA dimension: 3.0 cm RA long axis AoV Opening LVIDs: 4.2 cm FS: 19.0 % LA A2 area: 12.7 cm RA area Ao root diam EPSS: 0.96 cm LA A4 area: 19.5 cm IVSd: 0.90 cm LA length (vol): 5.0 cm: 18.9 cm Aortic Jxn LVPWd: 0.91 cm LA vol: 41.9 ml RA vol LA vol index : 64.8 ml asc Aorta RA Diam: 3.5 cm : 34.5 mm2 IVC diam: 2.1 cm LV clark. diameter/BSA LV sys. diameter/BSA RVD1 (basal) RVD2 (mid) (cm/m^2): 2.7 (cm/m^2): 2.2 : 3.3 cm Doppler Measurements & Calculations Ao V2 max MV E max amado MV E/A: 0.74 TR max amado: 325.9 cm/sec : 95.3 cm/sec : 53.1 cm/sec Med Peak E' Amado TR max P.5 mmHg Ao max PG MV A max amado PA V2 max: 61.7 cm/sec : 3.6 mmHg : 71.6 cm/sec E/E' med: 7.6 PA mean P.98 mmHg Ao mean PG Pulm A Revs Dur PA Accel Time: 0.06 sec : 1.9 mmHg MV A dur: 0.14 sec MV dec time Ao V2 mean PA V2 mean Pulm A Revs Dur - MV A : 0.19 sec : 63.6 cm/sec : 48.2 cm/sec Dur: -0.03 msec Ao V2 VTI PA pr(Accel) : 15.2 cm : 46.6 mmHg Reading Physician:PM
--- NOTE | 2016-06-15 23:31 | PROG NOTE ---
[address] [address] PROGRESS NOTE PATIENT: SATURNINO RUBIO : 1925 MR#: [id number] ADMIT: 06/13/2016 JOB ID: [id number] DATE: 06/15/2016 ORTHOPEDIC FOLLOW-UP CONSULTATION [id number] CHIEF COMPLAINT: This is an 89-year-old male with an impacted left femoral neck fracture. He also has documented influenza, as well as pneumonia. He had an episode of supraventricular tachyarrhythmia last night and evidently again this morning. He was treated for that. We are in a holding pattern for surgery pending medical clearance and improvement in his medical status. Chest x-ray did show moderate basilar predominant interstitial pulmonary opacity. PE: Patient is lying comfortably in bed. Left hip skin is clean and dry. Left leg neurovascular exam intact. Laboratory testing today shows a white count of 7600, markedly improved. Hemoglobin 11.4, hematocrit 36.4, platelets low at 80,000, neutrophils 83.3%. PTT is significantly elevated at 71. D-dimer is also elevated at 14.7. I will need to discuss these coagulation results with the hospitalist tomorrow morning. Sodium 141, potassium 4.1, chloride 106, CO2 26, BUN 18, creatinine 0.48, calcium low at 7.7, total protein low at 5.1, albumin low at 2.70. IMPRESSION: Left femoral neck fracture. Clinically, the patient is relatively comfortable in bed. He has an impacted left femoral neck fracture. In case he is cleared for surgery tomorrow will keep the patient n.p.o. after midnight tonight. I will discuss surgery with the hospitalist tomorrow. If he is not ready for surgery tomorrow then we will contemplate surgery on Monday. The day of surgery he would need to have repeat AP and lateral x-ray of the left hip to see if there is any change in fracture alignment. If fracture remains impacted, then he could be treated with cannulated screw fixation. If the fracture displaces, then he would require a more involved procedure, such as a bipolar hemiarthroplasty. The patient is aware that any surgery is pending his medical clearance. CC: PRESLEY- Orthopedics CC: Opal Pedro
[2016-06-16] VITALS (16 sets, daily range): BP systolic 119–147; BP diastolic 72–100; PULSE 60–90; RESP 16–22; O2SAT 92–98
[2016-06-16] MEDS: 0.9% Sodium Chloride 500 ML IV SCH ×3 (01:14→14:34)
[2016-06-16] MEDS: Heparin 25K Unit/500mL 0.45 NS 25,000 UNIT in IV Premix 1 EACH IV SCH (04:55)
[2016-06-16] MEDS: HYDROmorphone 1 mg/mL Inj IVPUSH PRN (06:04)
--- NOTE | 2016-06-16 06:29 | NUR ---
O2/NSR/Pain: Pt initially was requiring additional oxygen up to 4L, but was soon weaned back down to 2L at the beginning of the shift, which he has remained at with continuous pulse oximetry. Pt has remained stable throughout the night in a NSR. Pain had not been an issue except with turning, until this am when the pt reported 5/10 pain at rest. Pt was initially given Tylenol and then was given 0.5 mg of IV Dilaudid for unresolved pain. Will cont. to monitor.
[2016-06-16 06:55] LABS: BASOPHILS % (AUTO) 0.2 % (0-3); EOSINOPHILS % (AUTO) 2.5 % (0-5); MONOCYTES % (AUTO) 5.5 % (4-12); Mean Corpuscular Hemoglobin 30.4 pg (27.0-35.0); Mean Corpuscular Volume 96.7 fL (81-100); NEUTROPHILS % (AUTO) 75.5 % (40-74); Platelet Count 85 bil/L (150-400)
--- NOTE | 2016-06-16 07:09 | PCM.PNMED ---
Subjective Date of Service Jun 16, 2016 Subjective And has no complaints this morning he has been coughing up some sputum. He denies any chest pain shortness of breath. He has remained in sinus rhythm through the night. Exam Vital Signs Vital Sign - Last Date Time Temp Pulse Resp B/P Pulse Ox O2 Delivery O2 Flow Rate FiO2 06/16/16 05:51 81 06/16/16 04:15 36.4 19 129/84 97 Nasal Cannula 2.00 Intake and Output 06/15/16 06/15/16 06/16/16 Cumulative From/Thru 15:00 23:00 07:00 06/13/16 13:27 - 06/16/16 06:53 Intake Total 1933 ml 1161 ml 8132 ml Output Total 200 ml 490 ml 1117 ml Balance 1733 ml 671 ml 7015 ml Intake Oral 576 ml 200 ml 1226 ml IV Total 1357 ml 961 ml 6906 ml Output Urine Total 200 ml 490 ml 1117 ml # Voids 1 3 # Bowel Movements 0 0 Exam Constitutional: Elderly man in no acute distress but does have some coughing Head: Normocephalic atraumatic Eyes: PERRLA DC EOMI Chest: Reveals some upper airway rhonchi Cor: Regular rate and rhythm S1-S2 without murmur Abdomen: Soft nontender bowel sounds present Extremities: No pedal edema Neuro: Alert and oriented 3, motor strength intact bilaterally Lab and Diagnostics Laboratory Tests 72 Hours Test 06/13/16 13:40 06/14/16 00:50 06/14/16 02:35 06/14/16 08:20 White Blood Count 14.7th/mm3 (3.8-10.1) 10.4th/mm3 (3.8-10.1) Red Blood Count 4.46mil/mm3 (4.40-5.80) 4.04mil/mm3 (4.40-5.80) Hemoglobin 13.6g/dL (13.8-17.2) 12.2g/dL (13.8-17.2) Hematocrit 41.7% (41.0-50.0) 38.7% (41.0-50.0) Mean Corpuscular Volume 93.5fL (81-100) 95.8fL (81-100) Mean Corpuscular Hemoglobin 30.5pg (27.0-35.0) 30.2pg (27.0-35.0) Mean Corpuscular Hemoglobin Concent 32.6% (32.0-37.0) 31.5% (32.0-37.0) Red Cell Distribution Width 13.2% (12.3-15.4) 13.5% (12.3-15.4) Platelet Count 124bil/L (150-400) 96bil/L (150-400) Neutrophils (%) (Auto) 91.0% (40-74) 88.6% (40-74) Lymphocytes (%) (Auto) 3.3% (14-46) 7.1% (14-46) Monocytes (%) (Auto) 5.1% (4-12) 4.1% (4-12) Eosinophils (%) (Auto) 0% (0-5) 0% (0-5) Basophils (%) (Auto) 0.1% (0-3) 0.1% (0-3) Sodium Level 139mEq/L (134-144) 139mEq/L (134-144) 140mEq/L (134-144) Potassium Level 4.0mEq/L (3.5-5.2) 4.3mEq/L (3.5-5.2) 4.1mEq/L (3.5-5.2) Chloride Level 101mEq/L (97-108) 101mEq/L (97-108) 102mEq/L (97-108) Carbon Dioxide Level 25mmol/L (18-29) 28mmol/L (18-29) 27mmol/L (18-29) Blood Urea Nitrogen 19mg/dL (8-27) 21mg/dL (8-27) 20mg/dL (8-27) Creatinine 0.62mg/dL (0.76-1.27) 0.61mg/dL (0.76-1.27) 0.60mg/dL (0.76-1.27) Estimat Glomerular Filtration Rate 130mL/min (>59) 132mL/min (>59) 135mL/min (>59) Glucose Level 129mg/dL (60-99) 106mg/dL (60-99) 109mg/dL (60-99) Hemoglobin A1c 5.5% (4.8-5.6) Lactic Acid Level 2.4mmol/L (0.4-2.0) 1.8mmol/L (0.4-2.0) Calcium Level 8.8mg/dL (8.5-10.1) 8.0mg/dL (8.5-10.1) 8.0mg/dL (8.5-10.1) Magnesium Level 1.8mg/dL (1.6-2.6) Total Bilirubin 0.6mg/dL (0.0-1.2) 0.3mg/dL (0.0-1.2) 0.3mg/dL (0.0-1.2) Aspartate Amino Transf (AST/SGOT) 34U/L (0-50) 38U/L (0-50) 46U/L (0-50) Alanine Aminotransferase (ALT/SGPT) 18U/L (0-44) 16U/L (0-44) 17U/L (0-44) Alkaline Phosphatase 98U/L (25-160) 77U/L (25-160) 80U/L (25-160) Troponin T 0.025ug/L (0.0-0.011) 0.021ug/L (0.0-0.011) < 0.010ug/L (0.0-0.011) Pro-B-Type Natriuretic Peptide 920.1pg/mL (0-486) 904pg/mL (0-486) Total Protein 6.9g/dL (6.4-8.4) 5.7g/dL (6.4-8.4) 6.2g/dL (6.4-8.4) Albumin 3.5g/dL (3.4-5.0) 3.2g/dL (3.4-5.0) 3.2g/dL (3.4-5.0) Procalcitonin 2.57ng/mL (See Comment) 3.46ng/mL (See Comment) Prothrombin Time 11.8sec (8.1-12.5) Prothromb Time International Ratio 1.10ratio Activated Partial Thromboplast Time 31.6sec (22.8-33.0) Test 06/14/16 13:45 1/17/17 17:56 06/14/16 19:43 06/15/16 00:00 Troponin T < 0.010ug/L (0.0-0.011) < 0.010ug/L (0.0-0.011) < 0.010ug/L (0.0-0.011) 0.010ug/L (0.0-0.011) White Blood Count 8.4th/mm3 (3.8-10.1) Red Blood Count 4.08mil/mm3 (4.40-5.80) Hemoglobin 12.5g/dL (13.8-17.2) Hematocrit 39.2% (41.0-50.0) Mean Corpuscular Volume 96.1fL (81-100) Mean Corpuscular Hemoglobin 30.6pg (27.0-35.0) Mean Corpuscular Hemoglobin Concent 31.9% (32.0-37.0) Red Cell Distribution Width 13.5% (12.3-15.4) Platelet Count 81bil/L (150-400) Neutrophils (%) (Auto) 82.2% (40-74) Lymphocytes (%) (Auto) 14.7% (14-46) Monocytes (%) (Auto) 2.5% (4-12) Eosinophils (%) (Auto) 0.4% (0-5) Basophils (%) (Auto) 0.1% (0-3) Activated Partial Thromboplast Time 33.7sec (22.8-33.0) 253.0sec (22.8-33.0) D-Dimer 14.7mg/L (<0.50) Sodium Level 138mEq/L (134-144) Potassium Level 3.9mEq/L (3.5-5.2) Chloride Level 101mEq/L (97-108) Carbon Dioxide Level 26mmol/L (18-29) Blood Urea Nitrogen 19mg/dL (8-27) Creatinine 0.53mg/dL (0.76-1.27) Estimat Glomerular Filtration Rate 156mL/min (>59) Glucose Level 105mg/dL (60-99) Calcium Level 8.0mg/dL (8.5-10.1) Total Bilirubin 0.3mg/dL (0.0-1.2) Aspartate Amino Transf (AST/SGOT) 50U/L (0-50) Alanine Aminotransferase (ALT/SGPT) 16U/L (0-44) Alkaline Phosphatase 76U/L (25-160) Total Protein 5.9g/dL (6.4-8.4) Albumin 2.9g/dL (3.4-5.0) Hold Khan Top Tube Received (Received) Test 06/15/16 02:13 06/15/16 05:42 06/15/16 08:46 06/15/16 13:23 White Blood Count 7.6th/mm3 (3.8-10.1) Red Blood Count 3.78mil/mm3 (4.40-5.80) Hemoglobin 11.4g/dL (13.8-17.2) Hematocrit 36.4% (41.0-50.0) Mean Corpuscular Volume 96.3fL (81-100) Mean Corpuscular Hemoglobin 30.2pg (27.0-35.0) Mean Corpuscular Hemoglobin Concent 31.3% (32.0-37.0) Red Cell Distribution Width 13.6% (12.3-15.4) Platelet Count 80bil/L (150-400) Neutrophils (%) (Auto) 83.3% (40-74) Lymphocytes (%) (Auto) 12.7% (14-46) Monocytes (%) (Auto) 3.0% (4-12) Eosinophils (%) (Auto) 0.8% (0-5) Basophils (%) (Auto) 0.1% (0-3) Activated Partial Thromboplast Time 127.7sec (22.8-33.0) 68.6sec (22.8-33.0) Sodium Level 141mEq/L (134-144) Potassium Level 4.1mEq/L (3.5-5.2) Chloride Level 106mEq/L (97-108) Carbon Dioxide Level 26mmol/L (18-29) Blood Urea Nitrogen 18mg/dL (8-27) Creatinine 0.48mg/dL (0.76-1.27) Estimat Glomerular Filtration Rate 174mL/min (>59) Glucose Level 117mg/dL (60-99) Calcium Level 7.7mg/dL (8.5-10.1) Total Bilirubin 0.2mg/dL (0.0-1.2) Aspartate Amino Transf (AST/SGOT) 45U/L (0-50) Alanine Aminotransferase (ALT/SGPT) 15U/L (0-44) Alkaline Phosphatase 67U/L (25-160) Troponin T 0.010ug/L (0.0-0.011) < 0.010ug/L (0.0-0.011) Total Protein 5.1g/dL (6.4-8.4) Albumin 2.7g/dL (3.4-5.0) Lactic Acid Level 0.8mmol/L (0.4-2.0) Test 06/15/16 17:40 06/16/16 01:05 06/16/16 06:00 Activated Partial Thromboplast Time 71.0sec (22.8-33.0) Troponin T < 0.010ug/L (0.0-0.011) 0.010ug/L (0.0-0.011) White Blood Count 6.5th/mm3 (3.8-10.1) Red Blood Count 3.62mil/mm3 (4.40-5.80) Hemoglobin 11.0g/dL (13.8-17.2) Hematocrit 35.0% (41.0-50.0) Mean Corpuscular Volume 96.7fL (81-100) Mean Corpuscular Hemoglobin 30.4pg (27.0-35.0) Mean Corpuscular Hemoglobin Concent 31.4% (32.0-37.0) Red Cell Distribution Width 13.3% (12.3-15.4) Platelet Count 85bil/L (150-400) Neutrophils (%) (Auto) 75.5% (40-74) Lymphocytes (%) (Auto) 16.3% (14-46) Monocytes (%) (Auto) 5.5% (4-12) Eosinophils (%) (Auto) 2.5% (0-5) Basophils (%) (Auto) 0.2% (0-3) Result Diagram: 06/16/16 0600 06/15/16 0213 X-Rays, CTs and MRIs Patient Name: SATURNINO RUBIO MR#: [id number] Location: [facility] Ordering Phys: Mirna Martinez MD Date of Service: 06/14/161807 PROCEDURE: X-RAY CHEST ONE VIEW, PORTABLE ([id number]) INDICATIONS: rvr a fib TECHNIQUE: One view of the chest was acquired. COMPARISON: None. FINDINGS: Surgical changes and devices: None. Lungs and pleura: No pleural effusions or pneumothorax. Moderate basilar predominant interstitial pulmonary opacity is present, of uncertain acuity, possibly chronic. Mediastinum: Mediastinal contours appear normal. Heart size is normal. Bones and chest wall: No suspicious bony lesions. Overlying soft tissues appear unremarkable. IMPRESSION: Moderate interstitial pulmonary opacity, possibly chronic. Atypical pneumonia could also produce a similar appearance. Dictated by: Maye Perez M.D. on 06/14/2016 at 18:34 Approved by: Maye Perez M.D. on 06/14/2016 at 18:34 PROCEDURE: CT ANGIO CHEST PULMONARY EMBOLISM ([id number]) INDICATIONS: new afib TECHNIQUE: After the administration of intravenous contrast, 2 mm thick sections acquired from the pulmonary apices to the posterior costophrenic angles. 3-dimensional maximum intensity projection (MIP) coronal and sagittal reformats were then acquired through the thorax. For radiation dose reduction, the following was used: automated exposure control, adjustment of mA and/or kV according to patient size. COMPARISON: None. FINDINGS: Image quality: Excellent. Pulmonary arteries: Pulmonary arteries are normal in size, and demonstrate no intraluminal filling defects to suggest central pulmonary embolism. Lungs and pleura: No pneumothorax. Small bilateral pleural effusions. Moderate right and mild left dependent air space opacity. Bilateral segmental and subsegmental mid and lower lung bronchial thickening. 8mm diameter subpleural nodule within the left upper lobe laterally. Mild mid and lower lung interstitial pulmonary opacity, likely chronic. Bilateral anterior and posterior pleural calcifications. Central and peripheral airways are patent. Mediastinum: Heart size is normal, without pericardial effusion. There is calcification of the coronary vasculature. 17 mm short axis subcarinal adenopathy. 19 mm short axis right hilar adenopathy. 17 mm short axis left hilar adenopathy. Thoracic aorta is normal in caliber and enhancement. Esophagus is normal in caliber, without hiatal hernia. Bones and chest wall: No suspicious bony lesions. Flowing anterior osteophytes within the mid and lower thoracic spine. Ribs and thoracic spine appear intact throughout. Thyroid gland is within normal limits as visualized. No axillary or supraclavicular adenopathy. Abdomen: Visualized upper abdominal solid organs appear normal in the early arterial phase of enhancement. IMPRESSION: 1. No pulmonary embolus. 2. Bilateral mid and lower lung bronchopneumonia. 3. Mediastinal and bilateral hilar adenopathy, presumably reactive. Followup chest CT with contrast in 3 months is recommended to ensure resolution, and to exclude the less likely possibility of underlying neoplasm. 4. 8mm diameter left upper lobe subpleural nodule, possibly related to scarring. Followup is recommended as below. 5. Coronary artery disease. 6. Asbestos related pleural disease. Fleischner Society criteria for SOLID lung nodule followup. Nodule size (mm)Low-risk patientHigh-risk [id number] follow-up neededFollow-up at 12 mo; if no change, no further follow-up>[id number] CT at 12 mo; if no change, no further follow-up needed.Initial follow-up CT at 6-12 mo, then 18-24 mo if no change. >6-8Initial follow-up CT at 6-12 mo, then 18-24 mo if no change. Initial follow-up CT at 3-6 mo, then 9-12 mo and 24 mo if no change. > 8Follow-up CT at 3, 9, 24 mo. Or PET and/or biopsy.Same as for low-risk pts. Dictated by: Maye Perez M.D. on 06/15/2016 at 13:01 Approved by: Maye Perez M.D. on 06/15/2016 at 13:01 Cardiac Echo Impressions Name: SATURNINO RUBIO FStudy Date: 06/15/2016 Height: 69 in Hospital Exam Location: [facility] Weight: 160 lb Gender: Male BSA: 1.9 m2 : 1925 Age: 89 yrs BP: 135/87 mmHg Reason For Study: AFIB Ordering Physician: [facility] Performed By: Mode Anders Referring Physician: Charissa MORILLO Interpretation Summary The left ventricle is normal in size. Left ventricular systolic function is normal without focal wall motion abnormalities. The ejection fraction is estimated to be 55-60%. Assessment of diastolic parameters indicates a relaxation abnormality of the left ventricle, consistent with normal filling pressures. The right ventricle is normal in size and function. The right ventricular systolic pressure is estimated at 46 mmHg assuming a right atrial pressure of 3 mm Hg. The left atrial size is normal. The right atrium is mildly dilated. There is mild mitral regurgitation. There is no other significant valvular heart disease. The ascending aorta is mildly enlarged. Procedure: A two-dimensional transthoracic echocardiogram with color flow and Doppler was performed. The study quality was technically adequate. There is no prior echocardiogram noted for this patient. The patient was fully supine during the exam. A contrast injection of Definity was performed to improve assessment of LV function. The patient was in normal sinus rhythm during the exam. Left Ventricle: The left ventricle is normal in size. There is normal left ventricular wall thickness. Left ventricular systolic function is normal without focal wall motion abnormalities. The ejection fraction is estimated to be 55-60%. Assessment of diastolic parameters indicates a relaxation abnormality of the left ventricle, consistent with normal filling pressures. Right Ventricle: The right ventricle is normal in size and function. Atria: The left atrial size is normal. The right atrium is mildly dilated. The interatrial septum is intact with no evidence for an atrial septal defect. Mitral Valve: There is a flat closure plane of the the mitral valve leaflets. There is mild mitral regurgitation. Aortic Valve: The aortic valve opens well. There is trace aortic regurgitation. Tricuspid Valve: The tricuspid valve is normal in structure and function. There is trace tricuspid regurgitation. The right ventricular systolic pressure is estimated at 46 mmHg assuming a right atrial pressure of 3 mm Hg. Pulmonic Valve: The pulmonic valve is not well visualized. There is no other significant valvular heart disease. Great Vessels: The aortic root is normal size. The ascending aorta is mildly enlarged. The pulmonary artery is normal size. The IVC is of normal diameter and collapses greater than 50% with a sniff. This suggests a low right atrial pressure of 3 mm Hg. Pericardium/ Pleura There is no pericardial effusion. There is no pleural effusion. MMode/2D Measurements & Calculations LVIDd: 5.1 cm LA dimension: 3.0 cm RA long axis AoV Opening LVIDs: 4.2 cm FS: 19.0 % LA A2 area: 12.7 cm RA area Ao root diam EPSS: 0.96 cm LA A4 area: 19.5 cm IVSd: 0.90 cm LA length (vol): 5.0 cm: 18.9 cm Aortic Jxn LVPWd: 0.91 cm LA vol: 41.9 ml RA vol LA vol index : 64.8 ml asc Aorta RA Diam: 3.5 cm : 34.5 mm2 IVC diam: 2.1 cm LV clark. diameter/BSA LV sys. diameter/BSA RVD1 (basal) RVD2 (mid) (cm/m^2): 2.7 (cm/m^2): 2.2 : 3.3 cm Doppler Measurements & Calculations Ao V2 max MV E max amado MV E/A: 0.74 TR max amado: 325.9 cm/sec : 95.3 cm/sec : 53.1 cm/sec Med Peak E' Amado TR max P.5 mmHg Ao max PG MV A max amado PA V2 max: 61.7 cm/sec : 3.6 mmHg : 71.6 cm/sec E/E' med: 7.6 PA mean P.98 mmHg Ao mean PG Pulm A Revs Dur PA Accel Time: 0.06 sec : 1.9 mmHg MV A dur: 0.14 sec MV dec time Ao V2 mean PA V2 mean Pulm A Revs Dur - MV A : 0.19 sec : 63.6 cm/sec : 48.2 cm/sec Dur: -0.03 msec Ao V2 VTI PA pr(Accel) : 15.2 cm : 46.6 mmHg Reading Physician:PM Assessment & Plan Active issues and reason for admission 89-year-old male with left hip fracture, concurrent pulmonary infiltrates with influenza A positive, anticipate delay in orthopedic repair due to pneumonia/ influenza, high aspiration risk based on loose cough, hemodynamically stable. -- Dr. Alex Peter orthopedics -- UA pending - Have ordered PT PTT labs along with type and screen -I think that evaluating risks and benefits of surgery today I think that the benefits outweigh the risks at this point. Patient has remained in sinus rhythm almost 24 hours now. -We will check AP and lateral left hip films as requested per orthopedic surgery Influenza, infiltrates -- Tamiflu / rocephine / azithro / duonebs / incentive spirometer -- pending sputum culture elevated trop, sinus arrythmia IVF were increased during the night, s/p 1L boluse in ER -- pending BNP, monitor for fluid overload -- trend trop -- monitor for evidence for a fib -Troponins have come down to normal over the past several days. Narrow complex tachycardia --- CTA of chest reveals no pulmonary emboli but there is evidence of broncho- pneumonia noted as seen on chest x-ray. We will proceed with stopping IV heparin drip. Echo reveals normal systolic function with no significant abnormalities please see report for details. D-dimer came back elevated and so we will proceed with CT A of chest PE protocol today Patient currently is in sinus rhythm. Patient has been started on by mouth amiodarone at 200 mg by mouth 3 times a day yesterday and has remained in sinus rhythm will decrease to 200 mg by mouth twice a day. Chronic issues known prior to admission, present on admission patient indicated none, likely inaccurate historian Diet currently nothing by mouth as per orthopedic DVT prophylaxis possible OR today so we will hold subcutaneous anticoagulation. Code DNR Disposition inpatient. has been admitted for fever. 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 Assessment and plan were discussed with patient VTE Prophylaxis: Sub-Q Heparin (Unfractionated) (per hospitalist service), SCDs VTE Mechanical Devices: Intermittant Pneumatic CD Time spent 30 minutes Mirna Martinez MD Jun 16, 2016 07:09
[2016-06-16] MEDS: Albuterol-Ipratropium 3 mL Inhalation Solution NEB SCH ×4 (07:50→21:00)
--- NOTE | 2016-06-16 08:16 | NUR ---
Spoke with Zainab at [facility] in [place] and she is working with patient's insurance today. She can accept clinically and is working on insurance piece. 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
[2016-06-16] MEDS ORDERED: Heparin 5,000 Unit/mL Inj SUBQ SCH (08:30)
--- NOTE | 2016-06-16 09:09 | PCM.PNORTH ---
Subjective Date of Service: Jun 16, 2016 Visit Information: Reason for Visit Hip Fx,Pneumonia Surgery/Surgery Date Post-Op Day # Date of Admission: Jun 13, 2016 at 16:52 Hospital Day # 4 Subjective Patient reports he is not moving the hip does not bother him. If he has any motion of the left leg the hip is painful. Postop General: No Complaints, No Chest Pain Pain Management: IV Push Objective Exam Objective Patient is seen lying in bed during a breathing treatment. He is alert, oriented and cooperative to exam. Left lower extremity: Skin is intact. Leg lengths are equal. Motion is not tested due to acute fracture. Sensation is intact of the foot. Motor function is intact distally. Dorsalis pedis pulses palpable. Vital Signs and I/O Vital Sign - Last Date Time Temp Pulse Resp B/P Pulse Ox O2 Delivery O2 Flow Rate FiO2 06/16/16 08:13 36.4 60 20 124/90 98 06/16/16 08:01 Supplement Oxygen 06/16/16 07:50 2.00 Intake and Output 06/15/16 06/15/16 06/16/16 Cumulative From/Thru 15:00 23:00 07:00 06/13/16 13:27 - 06/16/16 06:53 Intake Total 1933 ml 1161 ml 8132 ml Output Total 200 ml 490 ml 1117 ml Balance 1733 ml 671 ml 7015 ml Intake Oral 576 ml 200 ml 1226 ml IV Total 1357 ml 961 ml 6906 ml Output Urine Total 200 ml 490 ml 1117 ml # Voids 1 3 # Bowel Movements 0 0 Lab & Micro Results Laboratory Tests Test 06/15/16 13:23 06/15/16 17:40 06/16/16 01:05 06/16/16 06:00 Troponin T < 0.010ug/L (0.0-0.011) < 0.010ug/L (0.0-0.011) 0.010ug/L (0.0-0.011) Activated Partial Thromboplast Time 71.0sec (22.8-33.0) 71.6sec (22.8-33.0) White Blood Count 6.5th/mm3 (3.8-10.1) Red Blood Count 3.62mil/mm3 (4.40-5.80) Hemoglobin 11.0g/dL (13.8-17.2) Hematocrit 35.0% (41.0-50.0) Mean Corpuscular Volume 96.7fL (81-100) Mean Corpuscular Hemoglobin 30.4pg (27.0-35.0) Mean Corpuscular Hemoglobin Concent 31.4% (32.0-37.0) Red Cell Distribution Width 13.3% (12.3-15.4) Platelet Count 85bil/L (150-400) Neutrophils (%) (Auto) 75.5% (40-74) Lymphocytes (%) (Auto) 16.3% (14-46) Monocytes (%) (Auto) 5.5% (4-12) Eosinophils (%) (Auto) 2.5% (0-5) Basophils (%) (Auto) 0.2% (0-3) Sodium Level 141mEq/L (134-144) Potassium Level 4.1mEq/L (3.5-5.2) Chloride Level 105mEq/L (97-108) Carbon Dioxide Level 28mmol/L (18-29) Blood Urea Nitrogen 13mg/dL (8-27) Creatinine 0.36mg/dL (0.76-1.27) Estimat Glomerular Filtration Rate 243mL/min (>59) Glucose Level 93mg/dL (60-99) Calcium Level 7.8mg/dL (8.5-10.1) Total Bilirubin 0.4mg/dL (0.0-1.2) Aspartate Amino Transf (AST/SGOT) 44U/L (0-50) Alanine Aminotransferase (ALT/SGPT) 17U/L (0-44) Alkaline Phosphatase 67U/L (25-160) Total Protein 5.2g/dL (6.4-8.4) Albumin 2.8g/dL (3.4-5.0) Procalcitonin 1.18ng/mL (See Comment) Test 06/16/16 07:29 Microbiology 06/13/16 Blood Culture - Preliminary, Resulted No growth at 2 days; culture examined... 06/13/16 Sputum Quality Screen - Final, Resulted 06/13/16 Sputum Culture - Preliminary, Resulted MODERATE NORMAL GREGORIA PRESENT Result Diagram: 06/16/16 0600 06/16/16 0600 Activity: Activity per PT (patient may be seen for leg bed mobility and upper extremity work but left lower extremity and hip should be maintaining current neutral position.) Catheters: Urethral 2 Way Arvizu Assessment & Plan Impression Left hip fracture Problems: Plan Patient may eat today Plan is for surgical repair of the left hip by Dr. Cole on 06/17/2016. Nothing by mouth after midnight Pain Management: Tylenol, Dilaudid IV VTE Prophylaxis: Sub-Q Heparin (Unfractionated) (per hospitalist service), SCDs Resuscitation Status: DNR/DNI:Do Not Resuscitate/Intubate Anny Charlton PA-C Jun 16, 2016 09:09
[2016-06-16 10:49] LABS: APPEARANCE,URINE CLEAR (CLEAR,HAZY); COLOR,URINE YELLOW (YELLOW); OCCULT BLOOD,URINE SMALL (NEGATIVE); UROBILINOGEN,URINE NORMAL (NORMAL)
[2016-06-16] MEDS: cefTRIAXone Inj 2,000 MG in Dextrose 5% Minibag Plus 50 ML IV SCH (11:00)
[2016-06-16] MEDS: Heparin 5,000 Unit/mL Inj SUBQ SCH ×2 (11:44→21:13)
--- NOTE | 2016-06-16 12:52 | NUR ---
Status Surgery postponed to 06/17/16- no longer NPO After eating pt vomited, no further c/o nausea
--- NOTE | 2016-06-16 14:09 | NUR ---
NUTRITION ASSESSMENT: ASSESS: Pt is an 89yo M admitted for hip fx and influenza A. Pt is to have surgery tomorrow for hip repair. Pt is on a general diet but PO intake has been poor at bites. Pt has been experiencing some n/v after meals. PMHX: n/a LABS: Reviewed. Milk Handler .36, Ca 7.8, Alb 2.8 MEDS: Reviewed. GI: 0 BM SKIN: Eduardo 13 CURRENT WTS: 72.4kg, BMI 23.6kg/m2, admit wt 71.4kg DIET: General, PO bites EST. NEEDS: Kcals: 1810-2170kcal/day (25-30kcal/kg) Pro: 70-90g/day (1.0-1.2g/kg) NUTRITION DIAGNOSIS: 1.) Inadequate oral intake related to nausea/vomiting as evidence by pt w/PO of bites and pt experiencing persistent n/v NUTRITION INTERVENTION: 1.) Will add Gelatein Plus on L&D trays MONITOR / EVAL: PO, wt, GI, labs, POC, nutrition status. Will continue to monitor per moderate nutrition risk guidelines
[2016-06-16] MEDS: Azithromycin Inj 500 MG in Dextrose 5% w/Vial Mate 250 ML IV SCH (14:56)
[2016-06-16] MEDS: Ondansetron 2 mg/mL 2 mL Inj IVPUSH PRN (15:06)
--- NOTE | 2016-06-16 16:07 | DRSVH ---
PROCEDURE: X-RAY LEFT HIP COMPLETE, MINIMUM TWO VIEWS ([id number]) INDICATIONS: hip fracture TECHNIQUE: 3 views of the hip were acquired. COMPARISON: [facility], CR, XR PELVIS W LATERAL HIP LT, 06/13/2016, 14:30. [facility], CR, XR FEMUR 2VW LT, 06/13/2016, 17:24. [facility], CR, XR HIP 2VW LT, 06/13/19 17, 17:24. FINDINGS: Bones: No significant change in alignment or appearance of left subcapital femoral neck fracture. Soft tissues: No suspicious soft tissue calcifications or masses. Vascular calcifications indicate atherosclerosis. IMPRESSION: No change in alignment of subcapital femoral neck fracture. Dictated by: Rodolfo Marmolejo [facility] Interpreted: Charlotte Macedo MD on 06/16/2016 at 16:06 Transcribed by: CELESTINA on 06/16/2016 at 16:06 Approved by: Charlotte Macedo MD, PhD on 06/16/2016 at 16:35
--- NOTE | 2016-06-16 18:16 | NUR ---
ACTIVITY Patient denies pain. He complained of nausea after his lunch and vomited X 1 bilish colored emesis. Zofran 4 mg IV administered. He stated that this has been helpful. Denies nausea at this time. He refused his dinner. Poor appetite. Continues to be on O2 at 2 LPM via NC. PO2 on room air is in the mid-high 80's. He continues to be on tele. 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 Turned and repositioned Q 2 hrs. Skin care rendered. Consent for for surgery has been signed by the patient.
--- NOTE | 2016-06-16 21:30 | NUR ---
Treatment at 2100 skipped patient sleeping and in no respiratory distress noted
[2016-06-17] VITALS (24 sets, daily range): BP systolic 96–142; BP diastolic 59–82; PULSE 58–84; RESP 12–21; O2SAT 90–100
[2016-06-17] MEDS: 0.9% Sodium Chloride 500 ML IV SCH ×5 (00:21→23:54)
[2016-06-17] MEDS ORDERED: Lactated Ringer's 1,000 ML IV SCH ×2 (05:00→12:39)
[2016-06-17 05:39] LABS: BASOPHILS % (AUTO) 0.2 % (0-3); EOSINOPHILS % (AUTO) 2.4 % (0-5); MONOCYTES % (AUTO) 6.2 % (4-12); Mean Corpuscular Hemoglobin 29.9 pg (27.0-35.0); Mean Corpuscular Volume 94.7 fL (81-100); NEUTROPHILS % (AUTO) 75.4 % (40-74); Platelet Count 86 bil/L (150-400)
[2016-06-17 05:55] LABS: INR 1.02 ratio
--- NOTE | 2016-06-17 06:34 | NUR ---
Pain Pt reports intermittent L hip discomfort at 2-4/10 and was at first reluctant to accept any pain meds but then accepted Tylenol, which was given x2 with very good results, pt virtually pain-free unless moved. Pt NPO since MN in anticipation of surgery.
[2016-06-17] MEDS: Albuterol-Ipratropium 3 mL Inhalation Solution NEB SCH ×4 (08:05→20:07)
--- NOTE | 2016-06-17 08:07 | DRSVH ---
PROCEDURE: X-RAY LEFT HIP, ONE VIEW ([id number]) INDICATIONS: PREOPERATIVE PLANNING TECHNIQUE: 1 views of the hip were acquired. COMPARISON: [facility], CR, XR HIP 2VW LT, 06/16/2016, 9:17. FINDINGS: Bones: Left subcapital femoral neck fracture. No suspicious bony lesions. The visualized pelvic r ing appears intact. Soft tissues: No suspicious soft tissue calcifications or masses. IMPRESSION: No change in the left subcapital femoral neck fracture. Dictated by: Geetha Quijano M.D. on 06/17/2016 at 8:06 Approved by: Geetha Quijano M.D. on 06/17/2016 at 8:06
--- NOTE | 2016-06-17 08:23 | PCM.HPANE ---
Patient Data Surgeon Admitting Provider:Naveed Herrera MD Attending Provider:Naveed Herrera MD Primary Care Physician:Eliud Boston MD Other Provider: Reason for Visit Hip Fx,Pneumonia HIP FX,PNEUMONIA Ht/WT & BMI Height (Feet): 5 Height (Inches): 9.00 Weight (Kilograms): 72.500 Body Mass Index 23.31 Allergies Coded Allergies: No Known Allergies (Unverified , 06/13/16) Diabetes History Hx Diabetes?: No MRSA MRSA: No Medications No Active Prescriptions or Reported Meds History History of ENT Problems?: No Hx of Heart Problems?: No Cardiovascular History: Denies:: Congestive Heart Failure Hypertension Other History/Comments Echocardiogram shows normal LVEF. Hx of Respiratory Problem?: Yes Respiratory History: Positive for:: Pneumonia Denies:: Tuberculosis Other History/Comment Current pneumonia. Influenza positive. Condition improved over past 3 days. Normalized SpO2. Hx Neurologic Problems?: No Hx of GI Problems?: No Hx of Problems?: No Hx Musculoskeletal Problems?: No Hx of Psycho/Social Problems?: No Hx Surgeries?: No Hx Any Other Health Problems?: No Hx Diabetes: No Hx Alcohol Use: NoHx Substance Use: No Smoking Status: Unknown if Ever Smoker Have You Smoked inLast 12 mo: No Stop/Bang Treated for Sleep Apnea?: No Do You Have a CPAP Machine?: No S-Snoring: Do You Snore Loudly: No T-Tired: feel tired, fatigued: No O-Obsered: Observed not breath: No P-Blood Pressure: treated: No B- Body Mass Index > 35 kg/m2: No A- Age over 50: Yes N- Neck Large Circumference: No G- Gender Male: Yes ALEXANDRU Total Score: 1 ALEXANDRU Risk Assessment: Low Risk, <3 Yes Risk Assessment Category Category 1A: Patient has history of documented sleep apnea, and HAS NOT received any narcotic, sedative or anesthesia administration during this stay. Category 1B: Patient has history of documented sleep apnea, and HAS received any narcotic , sedative or anesthesia administration during this stay Category 2: Patient has SUSPECTED Obstructive Sleep Apnea, and HAS received any narcotic , sedative or anesthesia administration during this stay. Category 3: Patient has SUSPECTED Obstructive Sleep Apnea and HAS NOT received narcotic, sedative or anesthesia administration during this stay. Category 4: Outpatient in Procedural Areas with known sleep apnea or who screen positive for High Risk via the STOP/BANG questionnaire. Exam Exam Vital Signs Vital Signs Date Time Temp Pulse Resp B/P Pulse Ox O2 Delivery O2 Flow Rate FiO2 06/17/16 08:05 75 18 96 Nasal Cannula 2.00 06/17/16 05:48 69 06/17/16 04:05 36.5 71 16 141/79 96 Nasal Cannula 2.00 06/17/16 02:10 Supplement Oxygen General Appearance: Alert, Oriented X3, Cooperative, No Acute Distress HEENT/AIRWAY: MP 2, Neck Movement Lungs: Clear to Auscultation, Normal Air Movement Heart: Exam Unremarkable, Regular Rate/Rhythm, No Murmurs/Rubs/Gallops Additional Information Poor neck extension, lung exam reveals bilateral crackles and rhonchi. Meds/Labs/Diagnostics Admission Meds Current Medications Amiodarone HCl (Cordarone) 200 mg BID PO Last administered on 06/16/16 21:07; Start 06/16/16 at 08:30 Heparin Sodium (Porcine) 5000 unit 5,000 unit Q8 SUBQ Last administered on 06/16 21:13; Start 06/16/16 at 10:28; Stop 06/17/16 at 00:01; Status DC Lactated Ringer's (Lr) 1,000 ml @ 120 mls/hr Q8H20M IV Last administered on 04:57; Start 06/17/16 at 05:00; Stop 06/17/16 at 13:19 Labs Test 06/13/16 13:40 06/14/16 02:35 06/14/16 17:56 06/15/16 08:46 Hemoglobin A1c 5.5% (4.8-5.6) Magnesium Level 1.8mg/dL (1.6-2.6) Pro-B-Type Natriuretic Peptide 904pg/mL (0-486) D-Dimer 14.7mg/L (<0.50) Hold Khan Top Tube Received (Received) Lactic Acid Level 0.8mmol/L (0.4-2.0) Test 06/16/16 01:05 06/16/16 06:00 06/16/16 07:29 06/17/16 05:15 Troponin T 0.010ug/L (0.0-0.011) Activated Partial Thromboplast Time 71.6sec (22.8-33.0) Procalcitonin 1.18ng/mL (See Comment) Urine Color Yellow (YELLOW) Urine Appearance Clear (CLEAR,HAZY) Urine pH 6.0 (5.0-8.0) Urine Specific [place] 1.025 (1.003-1.035) Urine Protein Negativemg/dL (NEG,TRACE) Urine Glucose (UA) Negativemg/dL (NEGATIVE) Urine Ketones 40mg/dL (NEGATIVE) Urine Occult Blood Small (NEGATIVE) Urine Nitrite Negative (NEGATIVE) Urine Bilirubin Negative (NEGATIVE) Urine Urobilinogen Normalmg/dL (NORMAL) Urine Leukocyte Esterase Negative (NEGATIVE) Urine RBC 3-10/hpf (0-2) Urine WBC 0-5/hpf (0-5) Urine Epithelial Cells Occasional/hpf (NONE-MOD) Urine Crystals None seen (NONE SEEN) Urine Bacteria None/hpf (NONE-FEW) Urine Hyaline Casts None/lpf (NONE) Urine Granular Casts None seen (NONE SEEN) Urine Waxy Casts None seen (NONE SEEN) Urine Red Blood Cell Casts None seen (NONE SEEN) Urine White Blood Cell Casts None seen (NONE SEEN) Urine Mucus None seen (None Seen) Urine Trichomonas None seen (NONE SEEN) Urine Yeast None (NONE SEEN) Urinalysis Comment None Urine Culture Reflexed Not indicated White Blood Count 5.5th/mm3 (3.8-10.1) Red Blood Count 3.58mil/mm3 (4.40-5.80) Hemoglobin 10.7g/dL (13.8-17.2) Hematocrit 33.9% (41.0-50.0) Mean Corpuscular Volume 94.7fL (81-100) Mean Corpuscular Hemoglobin 29.9pg (27.0-35.0) Mean Corpuscular Hemoglobin Concent 31.6% (32.0-37.0) Red Cell Distribution Width 12.9% (12.3-15.4) Platelet Count 86bil/L (150-400) Neutrophils (%) (Auto) 75.4% (40-74) Lymphocytes (%) (Auto) 15.6% (14-46) Monocytes (%) (Auto) 6.2% (4-12) Eosinophils (%) (Auto) 2.4% (0-5) Basophils (%) (Auto) 0.2% (0-3) Prothrombin Time 10.9sec (8.1-12.5) Prothromb Time International Ratio 1.02ratio Sodium Level 142mEq/L (134-144) Potassium Level 3.9mEq/L (3.5-5.2) Chloride Level 105mEq/L (97-108) Carbon Dioxide Level 26mmol/L (18-29) Blood Urea Nitrogen 11mg/dL (8-27) Creatinine 0.37mg/dL (0.76-1.27) Estimat Glomerular Filtration Rate 236mL/min (>59) Glucose Level 89mg/dL (60-99) Calcium Level 7.6mg/dL (8.5-10.1) Total Bilirubin 0.4mg/dL (0.0-1.2) Aspartate Amino Transf (AST/SGOT) 42U/L (0-50) Alanine Aminotransferase (ALT/SGPT) 18U/L (0-44) Alkaline Phosphatase 67U/L (25-160) Total Protein 5.0g/dL (6.4-8.4) Albumin 2.7g/dL (3.4-5.0) Plan Impression Patient chart reviewed, patient interviewed and anesthestic plan with risks, benefits, and alternatives discussed, and informed consent obtained. ASA Physical Status: ASA3 Severe Disease Anesthetic Plan: SAB Bene/Risks/Altern/Consents: Yes HP Complete Prior to Induction: Yes Cralos Felix MD Jun 17, 2016 08:23
[2016-06-17] MEDS: Azithromycin Inj 500 MG in Dextrose 5% w/Vial Mate 250 ML IV SCH ×2 (08:30→12:47)
[2016-06-17] MEDS: cefTRIAXone Inj 2,000 MG in Dextrose 5% Minibag Plus 50 ML IV SCH ×2 (08:30→12:12)
[2016-06-17] MEDS: Ondansetron 2 mg/mL 2 mL Inj IVPUSH PRN (09:00)
[2016-06-17] MEDS ORDERED: fentaNYL-PF 50 mCg/mL 2 mL Inj ONE (10:02)
[2016-06-17] MEDS ORDERED: Ketamine 10 mg/mL 20 mL Inj ONE (10:02)
--- NOTE | 2016-06-17 10:08 | DRSVH ---
PROCEDURE: X-RAY PELVIS W/LAT HIP (LT) ([id number]) INDICATIONS: RE-CHECK BEFORE SURGERY TODAY TECHNIQUE: AP pelvis with lateral view(s) of the left hip(s). COMPARISON: [facility], CR, XR HIP 1VW LT, 06/17/2016, 7:21. [facility], CR, XR PELVIS W LATERAL HIP LT, 06/13/2016, 14:30. FINDINGS: Bones: No significant change in appearance nor alignment of left subcapital femoral neck fracture. M oderate to severe right hip joint narrowing redemonstrated. Soft tissues: The visualized bowel gas pattern is normal. No suspicious soft tissue calcifications. IMPRESSION: No significant change in alignment of left subcapital femoral neck fracture. Dictated by: Rodolfo BARRIENTOS Interpreted: Geetha uQijano MD on 06/17/2016 at 10:07 Transcribed by: MILY on 06/17/2016 at 10:07 Approved by: Geetha Quijano M.D. on 06/17/2016 at 15:12
--- NOTE | 2016-06-17 10:14 | NUR ---
TO OR IV saline locked. Report given to [employer]. Patient was transported to the OR via a hospital bed. His family is aware of this.
[2016-06-17] MEDS ORDERED: Propofol 10,000 mCg/mL 20 mL Inj ONE (10:38)
[2016-06-17] MEDS ORDERED: Lactated Ringer's 1,000 ML IV ONE (11:00)
--- NOTE | 2016-06-17 11:07 | NUR ---
Spoke with Zainab at [facility] and she will accept patient pending authorization from insurance and then it will need to be Monday because patient was Flu A positive on admit. Updated SHEREEN Addendum: 06/17/16 at 1457 by ROSIE FRANKLIN CM Spoke with Zainab at [facility] and she is going to start [employer] Auth today with potential to admit next week. They will not have a bed Monday for this patient but will likely have one early next week. SHEREEN confirmed with patient and family that [facility] is out of network but they are willing to pay the extra out of network cost to keep patient with his . Updated SHEREEN
[2016-06-17] MEDS: CeFAZolin 2 Gm/50 mL D5W IV Premix IV SCH ×2 (11:30→11:55)
[2016-06-17] MEDS ORDERED: Lactated Ringer's 500 ML IV PRN (12:39)
[2016-06-17] MEDS ORDERED: Phenylephrine 10,000 mCg/mL Inj IVPUSH PRN (12:40)
[2016-06-17] MEDS ORDERED: EPHEDrine Sulfate 50 mg/mL Inj IVPUSH PRN (12:40)
[2016-06-17] MEDS ORDERED: Labetalol 5 mg/mL 4 mL Inj IV PRN (12:40)
[2016-06-17] MEDS ORDERED: hydrALAZINE 20 mg/mL Inj IVPUSH PRN (12:40)
[2016-06-17] MEDS ORDERED: Dexamethasone 4 mg/mL Inj IVPUSH PRN (12:40)
[2016-06-17] MEDS ORDERED: HYDROmorphone 1 mg/mL Inj IVPUSH PRN (12:40)
[2016-06-17] MEDS ORDERED: fentaNYL-PF 50 mCg/mL 2 mL Inj IVPUSH PRN (12:40)
[2016-06-17] MEDS ORDERED: MetoCLOpramide 5 mg/mL 2 mL Inj IVPUSH PRN (12:40)
[2016-06-17] MEDS ORDERED: Atropine 0.4 mg/mL Inj IVPUSH PRN (12:40)
[2016-06-17] MEDS ORDERED: Bupivacaine-MPF 0.5% 30 mL Inj INFILTRATE ONE (13:16)
[2016-06-17] MEDS ORDERED: Magnesium Hydroxide 10 mL Oral Concentration PO PRN (13:35)
[2016-06-17] MEDS ORDERED: Sodium Biphos-Phos 133 mL Enema RECTAL PRN (13:35)
[2016-06-17] MEDS ORDERED: oxyCODONE-Acetamin 5-325 mg Tablet PO PRN (13:35)
[2016-06-17] MEDS ORDERED: Polyethylene Glycol (PEG) 17 Gm Powder PO PRN (13:35)
[2016-06-17] MEDS ORDERED: HYDROcodone-APAP 7.5-325 mg Tablet PO PRN (13:35)
--- NOTE | 2016-06-17 13:58 | PCM.ANEP1 ---
Post Anesthesia Phase 1 PACU Phase 1 Assessment Vital Signs Vital Signs Date Time Temp Pulse Resp B/P Pulse Ox O2 Delivery O2 Flow Rate FiO2 06/17/16 13:55 61 21 114/65 100 Nasal Cannula 2 06/17/16 13:53 18 100 06/17/16 13:50 36.5 59 18 108/65 100 Nasal Cannula 2 06/17/16 13:45 60 17 106/67 99 Nasal Cannula 2 06/17/16 13:40 62 19 108/66 98 Nasal Cannula 2 06/17/16 13:35 65 19 104/65 98 Nasal Cannula 2 06/17/16 13:30 19 98 06/17/16 13:30 66 19 96/59 98 Nasal Cannula 2 06/17/16 13:26 36.6 67 12 99/59 95 Nasal Cannula 2 06/17/16 09:07 36.6 84 14 128/74 96 Nasal Cannula 2.00 06/17/16 08:05 75 18 96 Nasal Cannula 2.00 Anesthetic Administered: SAB Level of Alertness: Awake, talking GARRETT's with Equal Strength: Yes Pain: No Pain Scale Score: 0 Nausea or Vomiting: No Oxygen Delivery: Nasal Cannula Lungs: Clear to Auscultation, Normal Air Movement Dermatome Level: T10 (Umbilicus) Carlos Felix MD Jun 17, 2016 13:58
--- NOTE | 2016-06-17 14:12 | PCM.ANEP2 ---
Post Anesthesia Evaluation ASA/CMS Post Anesthesia VS in Patient's Normal Range?: Yes Resp Stable; Airway Patent?: Yes CV Function & Hydration Stable: Yes Mental Status Recovered?: Yes Pain control Satisfactory?: Yes N/V Control Satisfactory?: Yes Carlos Felix MD Jun 17, 2016 14:12
--- NOTE | 2016-06-17 14:25 | DRSVH ---
PROCEDURE: X-RAY LEFT HIP COMPLETE, MINIMUM TWO VIEWS ([id number]) INDICATIONS: LEFT HIP CANULATED SCREWS TECHNIQUE: 2 views of the hip were acquired. COMPARISON: [facility], CR, XR HIP 1VW LT, 06/17/2016, 7:21. [facility], CR, XR HIP 2VW LT, 06/16/2016, 9:17. FINDINGS: Bones: Stable bony alignment involving the subcapital femoral neck fracture 3 partially threaded omar ulated screws have been placed in expected position. Soft tissues: No suspicious soft tissue calcifications or masses. IMPRESSION: Stable bone alignment and placement of 3 fixation screws. Dictated by: Rodolfo BARRIENTOS Interpreted: Geetha Quijano MD on 06/17/2016 at 14:24 Transcribed by: MILY on 06/17/2016 at 14:24 Approved by: Geetha Quijano M.D. on 06/17/2016 at 15:26
--- NOTE | 2016-06-17 15:12 | OP ---
[address] [address] OPERATIVE REPORT PATIENT: SATURNINO RUBIO : 1925 MR#: [id number] ADMIT: 06/13/2016 JOB ID: [id number] DATE OF SURGERY: 06/17/2016 PREOPERATIVE DIAGNOSIS(ES): Impacted left femoral neck fracture.ICD 10 S72.002A POSTOPERATIVE DIAGNOSIS(ES): Impacted left femoral neck fracture. ICD 10 S72.002A PROCEDURE: Open reduction and internal fixation, impacted left femoral neck fracture with three 7.3 mm cannulated screws. CPT code 47212. SURGEON: Dr. Alex Cole. RETORT PRE COOKER: None. ANESTHESIA: Spinal. ESTIMATED BLOOD LOSS: 35 mL. DRAINS: None. COMPLICATIONS: None. SPONGE AND NEEDLE COUNT: Correct. COMPLICATIONS: None. SPECIMEN: No specimen to pathology. INDICATIONS: An 89-year-old male with an impacted femoral neck fracture. CAT scan did show the femoral neck remains impacted and repeat x-rays on the morning of surgery also indicated this fracture remained impacted. He did have some other significant medical problems with flu and pneumonia and this was treated for a couple of days before coming to surgery. Since the fracture was impacted and it appeared to be in stable position, a decision was made for cannulated screw fixation rather than a larger procedure for a bipolar hemiarthroplasty, particularly with the patient's medical condition. PROCEDURE: Under adequate spinal anesthetic, the patient was placed on the fracture table. The left leg was placed in the fracture boot without any traction and the right leg was placed in a traction boot and displaced in scissor technique to allow image intensification visualization of the hip. X-rays confirmed the femoral neck fracture remained impacted. The left hip was then prepped and draped in a sterile fashion. After appropriate time-out was called, a small incision was fashioned over the lateral aspect of the femur. Decision was carried down through the tensor fascia eliud and the vastus lateralis fascia. Utilizing the alignment guide for the 7.3 mm cannulated screws, three guide pins were placed in a triangle fashion in the femoral neck and head. Each of the guide pins were measured and then partially drilled. One 90 mm and two 85 mm partially threaded short lag screws were then placed in the femoral neck and head with the screws making sure that they were past fracture site. Image intensification confirmed good position of the screws. Permanent x-rays were taken with image intensification. The wound was irrigated with antibiotic solution. The tensor fascia eliud was closed with interrupted lbodis-da-uvciy sutures of #1 Vicryl. Subcutaneous layers closed with 0 and 2-0 Vicryl and skin reapproximated with jaylyn. Xeroform dry sterile dressings were applied. The patient was carefully taken off the fracture table and placed in his hospital bed. He was taken to recovery room in stable condition. Sponge and needle count correct. No complications. PLAN: The patient will be allowed gait training, partial weightbearing 50% of his weight for one month on the left hip. The jaylyn will need to be removed in two weeks. He may see one of the PA's in the office in two weeks for a wound check, staple removal. I will see him back in followup four weeks thereafter with the x-rays of the hip. CC: [facility] CC: Blaire Pedro
--- NOTE | 2016-06-17 15:49 | DRSVH ---
PROCEDURE: X-RAY LEFT HIP COMPLETE, MINIMUM TWO VIEWS ([id number]) INDICATIONS: postop TECHNIQUE: 2 views of the hip were acquired. COMPARISON: [facility], CR, XR HIP 2VW LT, 06/17/2016, 12:59. FINDINGS: Bones: Stable alignment status post open reduction internal fixation of left subcapital femoral neck fracture. 3 partially threaded surgical fixation screws present in expected position. There is mode rate to severe narrowing of the gravity dependent portion of the right hip joint. 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 Soft tissues: No suspicious soft tissue calcifications or masses. IMPRESSION: Stable alignment status post ORIF of left subcapital femoral neck fracture. Dictated by: Rodolfo BARRIENTOS Interpreted: Geetha Quijano MD on 06/17/2016 at 15:49 Transcribed by: MILY on 06/17/2016 at 15:49 Approved by: Geetha Quijano M.D. on 06/18/2016 at 16:19
--- NOTE | 2016-06-17 16:00 | NUR ---
POST-OP Patient received from PACU via a hospital bed. On O2 at 2 LPM via NC. Placed on a continuous PO2. IVF ongoing. Tele placed back on. Per telecom sales consultant patient is on sinus rhythm; HR-80's. Dressing is CDI. IFC intact and draining to calvin colored UO. Denies pain/nausea/SOB at this time. Dermatomes is L2 at this time. Oriented to room and call light. Patient is on droplet precautions for + flu. (Pls. refer post-op grid for assessments).
--- NOTE | 2016-06-17 16:03 | NUR ---
Social Work: Continued Discharge Planning Ruby On Rails Web Developer: Continued Discharge Plan Data & Assessment: Ruby On Rails Web Developer spoke with patient's son and notified him that the patient was accepted to [facility] and venkat have to pay his co-pay if admitted. Patient's son voiced understanding and stated that they were in agreement with paying patient's co-pay when admitted to [facility]. The patient is likely to discharge on 06/20/16. Ruby On Rails Web Developer will continue to follow. Plan: Patient is likely to discharge to [facility] when medically stable. SW will continue to follow. Larissa Marques, DANA, ACM
[2016-06-17] MEDS: Sodium Chloride LOK Flush 10 mL Syringe IV SCH (16:58)
[2016-06-17] MEDS: HYDROcodone-APAP 5-325 mg Tablet PO PRN (18:48)
--- NOTE | 2016-06-17 20:15 | PCM.PNMED ---
Subjective Date of Service Jun 17, 2016 Subjective Ray reports that he continues to cough white sputum. He denies any dyspnea and states that he is feeling better. Exam Vital Signs Vital Sign - Last Date Time Temp Pulse Resp B/P Pulse Ox O2 Delivery O2 Flow Rate FiO2 06/17/16 16:14 70 18 97 Nasal Cannula 2.00 06/17/16 15:01 35.5 130/82 Intake and Output 06/16/16 06/16/16 06/17/16 Cumulative From/Thru 15:00 23:00 07:00 06/13/16 13:27 - 06/17/16 05:43 Intake Total 1055 ml 994 ml 28756 ml Output Total 175 ml 650 ml 1942 ml Balance 880 ml 344 ml 8239 ml Intake Oral 60 ml 100 ml 1386 ml IV Total 995 ml 894 ml 8795 ml Output Urine Total 175 ml 650 ml 1942 ml # Voids 1 4 # Bowel Movements 0 0 0 Exam General: Elderly man resting comfortably in bed this morning with oxygen mask in place. No acute distress. No conversational dyspnea or tripoding. Head: Normocephalic. Slcera anicteric. Moist mucus membranes, PERRLA Cardiac: RRR without murmur, rub, or gallop Lungs: Good inspiratory effort, there are subtle right basilar crackles. Bibasilar inspiratory wheezing Abdomen: Normoactive bowel tones. Soft nontender, nondistended Extremities: No cyanosis, clubbing, or pedal edema. Neuro: Alert and oriented 3, normal speech IVs and Medications Medications Reviewed: Medications were reviewed in detail Lab and Diagnostics Result Diagram: 06/17/1651406/17/16514 X-Rays, CTs and MRIs Patient Name: HIRA RUBIO Assessment & Plan Hira is an 89yo male with influenza A and pneumonia who had a ground level fall sustaining a left femoral neck fracture for which he has undergone repair today with Dr Cole. He has received Tamiflu, ceftriaxone, and azithromycin since admission. Hospital day #4 today. Influenza A, present on admission - Improving symptomatically - Continue with Tamiflu Community acquired pneumonia, present on admission - Ceftriaxone, azithromycin - Incentive spirometer Elevated troponin, has declined to normal - Telemetry Narrow complex tachycardia, currently is in sinus rhythm - CTA of chest reveals no pulmonary emboli but there is evidence of broncho- pneumonia noted as seen on chest x-ray. - Echo reveals normal systolic function with no significant abnormalities please see report for details. - Amiodarone 200 mg Po BID VTE Prophylaxis: Sub-Q Heparin (Unfractionated) (To be started in the morning) VTE Mechanical Devices: Intermittant Pneumatic CD Resuscitation Status: DNR/DNI:Do Not Resuscitate/Intubate Time spent 25 minutes Attending Statement I have seen and evaluated patient at bedside in addition to directly supervising care provided by resident physician. I agree with above documentation. Keturah Hu DO Jun 17, 2016 19:44 Lavelle Rhodes DO Jun 18, 2016 12:14
[2016-06-17] MEDS: Senna-Docusate 8.6-50 mg Tablet PO SCH (20:27)
[2016-06-18] VITALS (10 sets, daily range): BP systolic 109–148; BP diastolic 65–87; PULSE 65–87; RESP 16–20; O2SAT 94–97
[2016-06-18] MEDS: Sodium Chloride LOK Flush 10 mL Syringe IV SCH ×3 (00:30→16:22)
--- NOTE | 2016-06-18 05:41 | NUR ---
Pain/Activity Tolerated Q4 hour turns from left hip to back to left hip. Refused pain meds overnight, tele SR 70s. Satting 90s on 2L.
[2016-06-18] MEDS: 0.9% Sodium Chloride 500 ML IV SCH ×2 (06:23→14:46)
[2016-06-18 06:46] LABS: BASOPHILS % (AUTO) 0.1 % (0-3); EOSINOPHILS % (AUTO) 2.3 % (0-5); Mean Corpuscular Hemoglobin 30.6 pg (27.0-35.0); Mean Corpuscular Volume 95.2 fL (81-100); NEUTROPHILS % (AUTO) 77.2 % (40-74); Platelet Count 104 bil/L (150-400)
[2016-06-18] MEDS: Albuterol-Ipratropium 3 mL Inhalation Solution NEB SCH ×4 (07:48→20:53)
[2016-06-18] MEDS: Heparin 5,000 Unit/mL Inj SUBQ SCH ×2 (08:30→22:16)
[2016-06-18] MEDS: cefTRIAXone Inj 2,000 MG in Dextrose 5% Minibag Plus 50 ML IV SCH (08:47)
--- NOTE | 2016-06-18 10:19 | NUR ---
Evaluation completed. Please go to "Notes" then click on "Assessments and Notes" (bottom left corner of screen). Then select appropriate discipline tab on top of screen.
[2016-06-18] MEDS: Senna-Docusate 8.6-50 mg Tablet PO SCH ×2 (10:20→22:16)
[2016-06-18] MEDS: Azithromycin Inj 500 MG in Dextrose 5% w/Vial Mate 250 ML IV SCH (10:21)
--- NOTE | 2016-06-18 10:58 | PCM.PNMED ---
Subjective Date of Service Jun 18, 2016 Subjective Hira underwent ORIF of a left femoral neck fracture yesterday. He states that he is feeling pretty well though morning aside from his low back and hips feeling stiff. Per Physical therapy, he was stiff with sitting up this morning. He reports having a good appetite and minimal cough. He has not been using the incentive spirometer. Exam Vital Signs Vital Sign - Last Date Time Temp Pulse Resp B/P Pulse Ox O2 Delivery O2 Flow Rate FiO2 06/18/16 09:45 87 06/18/16 07:48 16 94 Nasal Cannula 2.00 06/18/16 06:20 37.2 148/78 Intake and Output 06/17/16 06/17/16 06/18/16 Cumulative From/Thru 15:00 23:00 07:00 06/13/16 13:27 - 06/18/16 06:49 Intake Total 1786 ml 100 ml 1062 ml 08973 ml Output Total 250 ml 400 ml 500 ml 3092 ml Balance 1536 ml -300 ml 562 ml 23237 ml Intake Oral 100 ml 250 ml 1736 ml IV Total 1786 ml 812 ml 96958 ml Output Urine Total 215 ml 400 ml 500 ml 3057 ml Estimated Blood Loss 35 ml 35 ml # Voids 4 # Bowel Movements 0 0 Exam General: Elderly man resting comfortably in bed this morning with supplement oxygen via nasal cannula at 2L/h. No acute distress. No conversational dyspnea or tripoding. Head: Normocephalic. Sclera anicteric. Moist mucus membranes, PERRLA Cardiac: RRR without murmur, rub, or gallop Lungs: Good inspiratory effort, there are bibasilar crackles present. No wheezes or rhonchi. Abdomen: Normoactive bowel tones. Soft nontender, nondistended Extremities: No cyanosis, clubbing, or pedal edema. Neuro: Alert and oriented 3, normal speech. IVs and Medications Medications Reviewed: Medications were reviewed in detail Lab and Diagnostics Result Diagram: 06/18/1658 06/18/1658 Cardiac Echo Impressions Assessment & Plan Hira is an 89yo male with influenza A and pneumonia who had a ground level fall sustaining a left femoral neck fracture for which he has undergone repair today with Dr Cole. He has received Tamiflu, ceftriaxone, and azithromycin since admission. Hospital day #5 today. Influenza A, present on admission - Continue to improve symptomatically - Continue with Tamiflu, today is the last day to complete a 5 day course Community acquired pneumonia, present on admission and improving - Ceftriaxone and azithromycin, plan to complete a 7day course of antibiotic treatment - Incentive spirometer, encouraged the patient to do this hourly while awake Post ORIF of the left femoral neck - Orthopedic surgery is following - Physical therapy - Pain management may be reduced tomorrow if he continues to do well without any opiate pain medication Thrombocytopenia of unclear etiology, improving - Holding heparin at this time, will initiate with further improvement of the platelet count - Monitor Narrow complex tachycardia, currently is in sinus rhythm - CTA of chest reveals no pulmonary emboli but there is evidence of broncho- pneumonia noted as seen on chest x-ray. - Echo reveals normal systolic function with no significant abnormalities please see report for details. - Amiodarone 200 mg Po BID Dispo: Plan for discharge to [facility] when medically stable, anticipate 2 more days. VTE Prophylaxis: Sub-Q Heparin (Unfractionated) (To be started in the morning) VTE Mechanical Devices: Intermittant Pneumatic CD Resuscitation Status: DNR/DNI:Do Not Resuscitate/Intubate Time spent 25 minutes Attending Statement I have seen and evaluated patient at bedside and directly supervised care provided by resident physician. I agree with above documentation. Keturah Hu DO Jun 18, 2016 10:58 Lavelle Rhodes DO Jun 18, 2016 15:04
[2016-06-18] MEDS: HYDROcodone-APAP 5-325 mg Tablet PO PRN ×2 (11:25→17:18)
[2016-06-18] MEDS: Ondansetron 2 mg/mL 2 mL Inj IVPUSH PRN (11:26)
--- NOTE | 2016-06-18 12:08 | PROG NOTE ---
[address] [address] PROGRESS NOTE PATIENT: SATURNINO RUBIO : 1925 MR#: [id number] ADMIT: 06/13/2016 JOB ID: [id number] DATE: 06/18/2016 CHIEF COMPLAINT: This is an 89-year-old male, status post cannulated screw fixation for an impacted left femoral neck fracture on June 17, 2016. The patient is alert and oriented, lying in bed. Appears to have much less respiratory discomfort at this time. He did have some underlying prior recent history of documented influenza, as well as some pulmonary infiltrates. OBJECTIVE: Vital signs: Temperature 36.7, pulse 77, respirations 16, blood pressure 130/74, pulse ox of 95 on nasal cannula. Left hip dressing is clean and dry. Calves are soft. He is moving both lower extremities, and he has intact neurovascular examination. Laboratory values, white count 6900, hemoglobin 10.8, hematocrit of 33.6, platelet count 104,000, 77.2% PMN and 13.2% lymphocytes. PTT of 31.6. Sodium 138, potassium 4.0, chloride 100, CO2 of 30, BUN 11, creatinine 0.44, glucose of 97, calcium 7.8. Albumin low at 2.6, total protein 5.0. Hospitalist note indicates the patient does have some stiffness in the low back, and he was stiff with sitting up with physical therapy. IMPRESSION: Impacted left femoral neck fracture, status post cannulated screw fixation. The patient is stable from that procedure. He also has ongoing influenza A, and some community-acquired pneumonia that he is currently being treated for. The patient currently has a sinus rhythm and he did have CTA that did not show any evidence of any pulmonary emboli. Cardiac echo also showed normal systolic function. The patient is currently on amiodarone 200 mg twice a day. They are to continue his subcu heparin for deep venous thrombosis prophylaxis and he will also need deep venous thrombosis prophylaxis upon discharge from the hospital. He will need jaylyn removed at two weeks. He may be seen by one of the PAs in the office in two weeks, and I will see him in four weeks thereafter with x-rays in the office.
--- NOTE | 2016-06-18 19:33 | NUR ---
Pain Patient had some pain to the operative site on and off during the shift. Patient somewhat hesitant to take oral pain medications, but stated that he felt much better after receiving them. Patient encouraged to tell staff when pain levels increase. Care is ongoing.
[2016-06-19] VITALS (7 sets, daily range): BP systolic 118–151; BP diastolic 64–79; PULSE 66–74; RESP 16–24; O2SAT 88–96
[2016-06-19] MEDS: Sodium Chloride LOK Flush 10 mL Syringe IV SCH ×3 (00:30→17:16)
[2016-06-19] MEDS: 0.9% Sodium Chloride 500 ML IV SCH ×2 (05:29→09:14)
[2016-06-19 05:44] LABS: BASOPHILS % (AUTO) 0.3 % (0-3); EOSINOPHILS % (AUTO) 2.3 % (0-5); MONOCYTES % (AUTO) 6.6 % (4-12); Mean Corpuscular Hemoglobin 30.1 pg (27.0-35.0); Mean Corpuscular Volume 94.6 fL (81-100); Platelet Count 115 bil/L (150-400)
[2016-06-19] MEDS: Albuterol-Ipratropium 3 mL Inhalation Solution NEB SCH (06:00)
--- NOTE | 2016-06-19 07:39 | NUR ---
Pain/Activity Pt denies pain. VSS. Ls coarse, supplemental O2. IV running NS at 75ml/h, BLE noted 1+. Droplet precautions continued. No complaints of chest pain. Care continues
[2016-06-19] MEDS: Senna-Docusate 8.6-50 mg Tablet PO SCH ×2 (08:09→22:13)
[2016-06-19] MEDS: cefTRIAXone Inj 2,000 MG in Dextrose 5% Minibag Plus 50 ML IV SCH (08:09)
[2016-06-19] MEDS ORDERED: Albuterol-Ipratropium 3 mL Inhalation Solution NEB PRN (08:35)
[2016-06-19] MEDS: Azithromycin Inj 500 MG in Dextrose 5% w/Vial Mate 250 ML IV SCH (09:21)
--- NOTE | 2016-06-19 10:31 | PCM.PNMED ---
Subjective Date of Service Jun 19, 2016 Subjective Pt notes breathing much improved today, pain less. Overall doing well, looking forward to DC to rehab tomorrow with continued improvement. No other acute complaints at this time. Exam Vital Signs Vital Sign - Last Date Time Temp Pulse Resp B/P Pulse Ox O2 Delivery O2 Flow Rate FiO2 06/19/16 08:48 36.7 73 19 144/79 93 Nasal Cannula 2.00 Intake and Output 06/18/16 06/18/16 06/19/16 Cumulative From/Thru 15:00 23:00 07:00 06/13/16 13:27 - 06/19/16 06:17 Intake Total 1668 ml 350 ml 01273 ml Output Total 600 ml 675 ml 4367 ml Balance 1068 ml -325 ml 33237 ml Intake Oral 440 ml 350 ml 2526 ml IV Total 1228 ml 96427 ml Output Urine Total 600 ml 675 ml 4332 ml Estimated Blood Loss 35 ml # Voids 4 # Bowel Movements 0 0 General: Alert, Oriented X3, Cooperative, Mild Distress Mouth: Mucous Membr Moist/[place] Chest & Lungs: Clear to auscultation & percussion, Other (diffuse wheezing with expiration;trace crackles noted at ling bases B/L. ) Abdomen: Non-tender Extremities: Other (trace - (+)1 pitting edema B/L. feet/toes well perfuses. Incision site from hip repair covered with clean/dry dressing. ) Neurological: Grossly Neurologically Intact IVs and Medications Medications Reviewed: Medications were reviewed in detail Lab and Diagnostics Result Diagram: 06/19/16 0528 06/18/16 0558 X-Rays, CTs and MRIs Patient Name: HIRA RUBIO Cardiac Echo Impressions Assessment & Plan Hira is an 89yo male with influenza A and pneumonia who had a ground level fall sustaining a left femoral neck fracture for which he has undergone repair today with Dr Cole. He has received Tamiflu, ceftriaxone, and azithromycin since admission. Hospital day #5 today. Influenza A, present on admission - Continue to improve symptomatically - Complete Tamiflu course. Community acquired pneumonia, present on admission and improving - Ceftriaxone and azithromycin, plan to complete a 7day course of antibiotic treatment - Incentive spirometer, encouraged the patient to do this hourly while awake Post ORIF of the left femoral neck - Orthopedic surgery is following - Physical therapy - Pain management may be reduced tomorrow if he continues to do well without any opiate pain medication - Plan FU DC to SNF tomorrow. Thrombocytopenia of unclear etiology, improving - upward trending today. - Monitor Narrow complex tachycardia, currently is in sinus rhythm - CTA of chest reveals no pulmonary emboli but there is evidence of broncho- pneumonia noted as seen on chest x-ray. - Echo reveals normal systolic function with no significant abnormalities please see report for details. - Amiodarone 200 mg Po BID Dispo: Plan for discharge to [facility] when medically stable, anticipate 1 more day. Pain Evaluation: Adequate Pain Control VTE Prophylaxis: Sub-Q Heparin (Unfractionated) (To be started in the morning) VTE Mechanical Devices: Intermittant Pneumatic CD Resuscitation Status: DNR/DNI:Do Not Resuscitate/Intubate Time spent 25 minutes Lavelle Rhodes DO Jun 19, 2016 10:31
[2016-06-19] MEDS: Heparin 5,000 Unit/mL Inj SUBQ SCH (10:35)
--- NOTE | 2016-06-19 12:42 | PCM.PNORTH ---
Subjective Date of Service: Jun 19, 2016 Visit Information: Reason for Visit Hip Fx,Pneumonia Surgery/Surgery Date CANNULATED SCREW FIXATION L FEMORAL NECK 06/17/2016 Post-Op Day # 2 Date of Admission: Jun 13, 2016 at 16:52 Hospital Day # Subjective Patient states the hip is doing better. He has stood at bedside but has not yet walked. He plans on going to [facility] following hospital stay to continue his rehabilitation. His will also be transferred there. Postop General: No Complaints, No Chest Pain Pain Management: PO, IV Push Objective Exam Objective Patient is seen laying in bed. Vital Signs and I/O Vital Sign - Last Date Time Temp Pulse Resp B/P Pulse Ox O2 Delivery O2 Flow Rate FiO2 06/19/16 11:47 Nasal Cannula 2.00 06/19/16 08:48 36.7 73 19 144/79 93 Intake and Output 06/18/16 06/18/16 06/19/16 Cumulative From/Thru 15:00 23:00 07:00 06/13/16 13:27 - 06/19/16 06:17 Intake Total 1668 ml 350 ml 45476 ml Output Total 600 ml 675 ml 4367 ml Balance 1068 ml -325 ml 57784 ml Intake Oral 440 ml 350 ml 2526 ml IV Total 1228 ml 78682 ml Output Urine Total 600 ml 675 ml 4332 ml Estimated Blood Loss 35 ml # Voids 4 # Bowel Movements 0 0 Lab & Micro Results Laboratory Tests Test 06/19/16 05:28 White Blood Count 7.1th/mm3 (3.8-10.1) Red Blood Count 3.49mil/mm3 (4.40-5.80) Hemoglobin 10.5g/dL (13.8-17.2) Hematocrit 33.0% (41.0-50.0) Mean Corpuscular Volume 94.6fL (81-100) Mean Corpuscular Hemoglobin 30.1pg (27.0-35.0) Mean Corpuscular Hemoglobin Concent 31.8% (32.0-37.0) Red Cell Distribution Width 12.7% (12.3-15.4) Platelet Count 115bil/L (150-400) Neutrophils (%) (Auto) 75.0% (40-74) Lymphocytes (%) (Auto) 15.4% (14-46) Monocytes (%) (Auto) 6.6% (4-12) Eosinophils (%) (Auto) 2.3% (0-5) Basophils (%) (Auto) 0.3% (0-3) Microbiology 06/13/16 Blood Culture - Final, Complete NO GROWTH AFTER 5 DAYS 06/13/16 Sputum Quality Screen - Final, Complete 06/13/16 Sputum Culture - Final, Complete MODERATE NORMAL GREGORIA PRESENT Result Diagram: 06/19/16 0528 06/18/16 0558 General Appearance: Alert, Oriented X3, Cooperative, No Acute Distress Extremities: Distal Pulses Palpable, No Compartment Syndrom Noted, Thigh & Calf Soft/Nontender Postop Sensory Motor: Distal Motor Intact, NVI Distally SURGICAL WOUND : Wound Location/Description Lateral left hip -surgical dressing is removed. Wound is clean, dry and intact. Lewis are intact. Wound is cleansed with hydrogen peroxide and Island dressing is applied. Incision General Appearance: [place], Well Approximated Dressing & Drainage Status: Changed (to be discontinued this afternoon) Activity: Activity per PT (patient may be seen for leg bed mobility and upper extremity work but left lower extremity and hip should be maintaining current neutral position.) Catheters: Urethral 2 Way Arvizu Assessment & Plan Impression Left hip pinning in situ Problems: Plan Weightbearin% weightbearing with walker x 1 month. DVT prophylaxis: DC heparin BID. Lovenox 40 mg subcutaneous 3 weeks followed by enteric coated aspirin 325 mg twice a day 3 weeks Physical therapy for transfers, progressive ambulation, therapeutic exercise. Activity: out of bed BID-TID to chair Wound care: changed today with Island dressing Discharge plan: Discharge to SNF tomorrow. Follow-up plan: In 2 weeks at [facility] with FUNMI for wound check and staple removal, and at 6 [address] op [address] Cole with XR Pain Management: [place], Tylenol VTE Prophylaxis: Sub-Q Heparin (Unfractionated) (To be started in the morning) , SCDs Resuscitation Status: DNR/DNI:Do Not Resuscitate/Intubate Anny Charlton PA-C Jun 19, 2016 12:42
[2016-06-19] MEDS: HYDROcodone-APAP 5-325 mg Tablet PO PRN ×3 (14:13→22:15)
--- NOTE | 2016-06-19 16:03 | NUR ---
Social Work: DRE DRE signed by patient's daughter.
--- NOTE | 2016-06-19 19:33 | NUR ---
Pain, Breathing, Arvizu Removal Patient continues to have some pain at the operative site. Patient encouraged to tell staff when his pain is increasing. Patient reports that ordered pain medication covers the pain well. Patient reports that breathing feels better today. Arvizu catheter removed, patient encouraged to increase fluid intake. Care is ongoing.
[2016-06-20] VITALS (8 sets, daily range): BP systolic 124–143; BP diastolic 64–79; PULSE 62–70; RESP 16–18; O2SAT 90–98
[2016-06-20] MEDS: Sodium Chloride LOK Flush 10 mL Syringe IV SCH ×3 (01:18→18:08)
--- NOTE | 2016-06-20 02:42 | NUR ---
Pain Patient stated 5/10 on pain scale during initial assessment. Pain medication administered. Patient yelled out in pain when turning to unaffected side during skin assessment. Patient stated that he was instructed by physician not to be turned on affected side for any reason. Patient was repositioned and appeared comfortable. VSS. Call light within reach.
[2016-06-20 05:36] LABS: BASOPHILS % (AUTO) 0.3 % (0-3); EOSINOPHILS % (AUTO) 3.9 % (0-5); Mean Corpuscular Hemoglobin 30.2 pg (27.0-35.0); Mean Corpuscular Volume 95.7 fL (81-100); NEUTROPHILS % (AUTO) 68.7 % (40-74); Platelet Count 160 bil/L (150-400)
[2016-06-20] MEDS: HYDROcodone-APAP 5-325 mg Tablet PO PRN ×2 (08:51→12:52)
[2016-06-20] MEDS: cefTRIAXone Inj 2,000 MG in Dextrose 5% Minibag Plus 50 ML IV SCH (08:52)
[2016-06-20] MEDS: Senna-Docusate 8.6-50 mg Tablet PO SCH ×2 (08:54→20:30)
--- NOTE | 2016-06-20 09:30 | NUR ---
Spoke with Zainab at [facility] [phone] and she is accepting patient but currently they are not taking in new patients. Zainab is saying Monday will be the day for admit. She will be calling to check in and if there is a sooner admit date we will know right away. Zainab has started [facility] authorization, she would like me to fax H&P and updated therapy notes to Reina at [facility] [phone]. [facility] can not accept patient until Monday, we will be updated if a bed opens sooner. Spoke with [employer] Knockout Worker about this case and due to spouses needs for SNF and complex insurance. Updated [employer]
[2016-06-20] MEDS: Azithromycin Inj 500 MG in Dextrose 5% w/Vial Mate 250 ML IV SCH (10:19)
--- NOTE | 2016-06-20 10:55 | PCM.PNORTH ---
Subjective Date of Service: Jun 20, 2016 Visit Information: Reason for Visit Hip Fx,Pneumonia Surgery/Surgery Date CANNULATED SCREW FIXATION L FEMORAL NECK Post-Op Day # Date of Admission: Jun 13, 2016 at 16:52 Hospital Day # Subjective Status post day #3 left hip pinning. Patient states he is doing very well, pain is well controlled. Has not been able to walk very far yet. Postop General: No Complaints, No Chest Pain Pain Management: PO, IV Push Objective Exam Objective Patient is alert and oriented 3. Answering questions appropriately. Sitting up in bed and not in any acute distress today. Dressing is clean dry and intact. Patient able to wiggle toes. Calf is soft and nontender, pulses intact, sensation is full. Vital Signs and I/O Vital Sign - Last Date Time Temp Pulse Resp B/P Pulse Ox O2 Delivery O2 Flow Rate FiO2 06/20/16 08:38 Supplement Oxygen 06/20/16 08:38 36.4 69 16 130/70 90 1.00 Intake and Output 06/19/16 06/19/16 06/20/16 Cumulative From/Thru 15:00 23:00 07:00 06/13/16 13:27 - 06/20/16 05:49 Intake Total 855 ml 1236 ml 350 ml 85343 ml Output Total 1200 ml 800 ml 6367 ml Balance 855 ml 36 ml -450 ml 22686 ml Intake Oral 1236 ml 350 ml 4112 ml IV Total 855 ml 96224 ml Output Urine Total 1200 ml 800 ml 6332 ml Estimated Blood Loss 35 ml # Voids 4 # Bowel Movements 0 0 Lab & Micro Results Laboratory Tests Test 06/20/16 05:05 White Blood Count 6.0th/mm3 (3.8-10.1) Red Blood Count 3.48mil/mm3 (4.40-5.80) Hemoglobin 10.5g/dL (13.8-17.2) Hematocrit 33.3% (41.0-50.0) Mean Corpuscular Volume 95.7fL (81-100) Mean Corpuscular Hemoglobin 30.2pg (27.0-35.0) Mean Corpuscular Hemoglobin Concent 31.5% (32.0-37.0) Red Cell Distribution Width 12.7% (12.3-15.4) Platelet Count 160bil/L (150-400) Neutrophils (%) (Auto) 68.7% (40-74) Lymphocytes (%) (Auto) 19.6% (14-46) Monocytes (%) (Auto) 7.0% (4-12) Eosinophils (%) (Auto) 3.9% (0-5) Basophils (%) (Auto) 0.3% (0-3) Sodium Level 139mEq/L (134-144) Potassium Level 3.9mEq/L (3.5-5.2) Chloride Level 97mEq/L (97-108) Carbon Dioxide Level 35mmol/L (18-29) Blood Urea Nitrogen 9mg/dL (8-27) Creatinine 0.43mg/dL (0.76-1.27) Estimat Glomerular Filtration Rate 198mL/min (>59) Glucose Level 95mg/dL (60-99) Calcium Level 8.1mg/dL (8.5-10.1) Microbiology 06/13/16 Blood Culture - Final, Complete NO GROWTH AFTER 5 DAYS 06/13/16 Sputum Quality Screen - Final, Complete 06/13/16 Sputum Culture - Final, Complete MODERATE NORMAL GREGORIA PRESENT Result Diagram: 06/20/16 0505 06/20/16 0505 SURGICAL WOUND : Incision General Appearance: [place], Well Approximated Dressing & Drainage Status: Changed (to be discontinued this afternoon) Activity: Activity per PT (patient may be seen for leg bed mobility and upper extremity work but left lower extremity and hip should be maintaining current neutral position.) Catheters: Urethral [address] Arvizu Assessment & Plan Impression Status post day #3 left hip pinning. Pain is well controlled, patient doing well. Current recommendations from orthopedics and physical therapy is SNF transfer. Problems: Plan Weightbearin% weightbearing with walker x 1 month. DVT prophylaxis: DC heparin BID. Lovenox 40 mg subcutaneous 3 weeks followed by enteric coated aspirin 325 mg twice a day 3 weeks Physical therapy for transfers, progressive ambulation, therapeutic exercise. Activity: out of bed BID-TID to chair Wound care: change dressing on a when necessary basis if saturating. While in SNF please keep incision covered until 2 week appointment. Orthopedics will sign off at this point and patient is ready for transfer at any time. Discharge plan: Discharge to SNF as soon as today when medically cleared. Follow-up plan: In 2 weeks at [facility] with PA for wound check and staple removal, and at 6 weeks post op with Dr. Cole with XR VTE Prophylaxis: Sub-Q Heparin (Unfractionated) (To be started in the morning) , SCDs Resuscitation Status: DNR/DNI:Do Not Resuscitate/Intubate Zaire Villasenor PA-C Jun 20, 2016 10:55
--- NOTE | 2016-06-20 13:30 | NUR ---
NUTRITION FOLLOW-UP: ASSESS: 89 yo Male admitted for hip fx and influenza A. Pt is s/p surgery on 06/17 for hip repair. Pt has had poor po intake since admit eating 0-25% of meals x 6 days, but po intake has improved today to 50-100% of meals. PMHX: N/A LABS: Reviewed. Alb 2.6. MEDS: Reviewed. GI: 0 BM x 7 days, pt reports flatus. CURRENT WTS: 75.8 kg. Admit wt: 71.4 kg DIET: General, PO Improved today with pt eating 50-100% of meals. EST. NEEDS: Kcals: 4459-9641 kcal/day (25-30 kcal/kg BW) Pro: 70-90 g/day (1.0-1.2 g/kg BW) NUTRITION DIAGNOSIS: 1.) Inadequate oral intake related to altered GI function (nausea/vomiting) as evidence by pt with PO intake of 0-25% x 6 days --IMPROVING, PT EATING 50-100% TODAY. NUTRITION INTERVENTION: 1.) Will change Gelatein to ensure BID now that nausea / vomiting has improved. MONITOR / EVAL: PO intake, labs, nutritional status. Continue to monitor per moderate nutrition risk guidelines.
--- NOTE | 2016-06-20 14:14 | NUR ---
NUTRITION/PAIN P-Patient not eating enough and states he has hip pain. I-Family and nurse encouraged patient to eat more and its role in healing process. Patient given [place] Q4. E- Patient states that pain is relieved by medication, verbalized understanding on importance of nutrition. Patient worked with PT today, O2 weaning stopped at 2L due to desaturation. D/C planning ongoing but waiting for bed in SNF.
--- NOTE | 2016-06-20 15:41 | NUR ---
Specialty Trimmer: Specialty Trimmer spoke with patient's son and notified him that [facility] was not able to accept the patient until Monday. He voiced understanding. SW will continue to follow. Larissa Marques, DANA, ACM
--- NOTE | 2016-06-20 18:20 | PCM.PNMED ---
Subjective Date of Service Jun 20, 2016 Subjective Ray is doing well today with very minimal coughing and no dyspnea. He is looking forward to discharging to [facility]. Exam Vital Signs Vital Sign - Last Date Time Temp Pulse Resp B/P Pulse Ox O2 Delivery O2 Flow Rate FiO2 06/20/16 15:58 36.6 70 16 130/73 97 Nasal Cannula 1.00 Intake and Output 06/19/16 06/19/16 06/20/16 Cumulative From/Thru 15:00 23:00 07:00 06/13/16 13:27 - 06/20/16 05:49 Intake Total 855 ml 1236 ml 350 ml 34974 ml Output Total 1200 ml 800 ml 6367 ml Balance 855 ml 36 ml -450 ml 22688 ml Intake Oral 1236 ml 350 ml 4112 ml IV Total 855 ml 06046 ml Output Urine Total 1200 ml 800 ml 6332 ml Estimated Blood Loss 35 ml # Voids 4 # Bowel Movements 0 0 Exam General: Elderly man resting comfortably in bed this morning with supplement oxygen via nasal cannula at 2L/h and oxygen saturation of 98%. No acute distress. No conversational dyspnea or tripoding. Head: Normocephalic. Sclera anicteric. Moist mucus membranes, PERRLA Cardiac: RRR without murmur, rub, or gallop Lungs: Good inspiratory effort. No wheezes, rales, or rhonchi. Abdomen: Normoactive bowel tones. Soft nontender, nondistended Extremities: No cyanosis, clubbing, or pedal edema. Neuro: Alert and oriented 3, normal speech. psychiatric: Normal affect. Pleasant. Lab and Diagnostics Result Diagram: 06/20/16 0505 06/20/16 0505 X-Rays, CTs and MRIs Cardiac Echo Impressions Assessment & Plan Hira is an 89yo male with influenza A and pneumonia who had a ground level fall sustaining a left femoral neck fracture for which he has undergone repair today with Dr Cole. He has received a full 5 day course of Tamiflu and continues with ceftriaxone, and azithromycin since admission. Hospital day #7 today. 1. Community acquired pneumonia, present on admission and improving - Ceftriaxone and azithromycin, today is the last day of a 7day course - Incentive spirometer, encouraged the patient to do this hourly while awake 2. Influenza A, present on admission, resolved - Continue to improve symptomatically - Completed a Tamiflu course. 3. Post ORIF of the left femoral neck - Orthopedic surgery has followed and he is okay to discharge to SNF - Physical therapy while inpatient - Plan to discharge to SNF when a bed is available for him 4. Narrow complex tachycardia, currently is in sinus rhythm - CT angio of the chest revealed no pulmonary emboli, but there was evidence of broncho-pneumonia noted as seen on chest x-ray. - Echo showed normal systolic function with no significant abnormality. - Amiodarone 200 mg PO BID Dispo: Plan for discharge to [facility] when a bed is available there. VTE Prophylaxis: Sub-Q Heparin (Unfractionated) (To be started in the morning) , SCDs VTE Mechanical Devices: Intermittant Pneumatic CD Resuscitation Status: DNR/DNI:Do Not Resuscitate/Intubate Attending Statement The patient was seen and examined together with Dr. Hu on 06/20/2016 and I have agree with the assessment and plan of care as noted above. Keturah Hu DO Jun 20, 2016 18:20 Tate Mueller MD Jun 21, 2016 15:03
--- NOTE | 2016-06-20 21:00 | NUR ---
pain denies pain q shift. cough productive cream colored, afebrile. no other c/o.
[2016-06-21] VITALS (8 sets, daily range): BP systolic 133–161; BP diastolic 69–85; PULSE 62–75; RESP 16–20; O2SAT 92–97
[2016-06-21] MEDS: HYDROcodone-APAP 5-325 mg Tablet PO PRN ×4 (01:00→15:55)
[2016-06-21] MEDS: Sodium Chloride LOK Flush 10 mL Syringe IV SCH ×3 (01:03→15:56)
[2016-06-21] MEDS: cefTRIAXone Inj 2,000 MG in Dextrose 5% Minibag Plus 50 ML IV SCH (08:19)
[2016-06-21] MEDS ORDERED: 0.9% Sodium Chloride 250 ML ONE (08:22)
[2016-06-21] MEDS: Senna-Docusate 8.6-50 mg Tablet PO SCH ×2 (08:47→21:33)
[2016-06-21] MEDS: Azithromycin Inj 500 MG in Dextrose 5% w/Vial Mate 250 ML IV SCH ×2 (09:50→11:01)
--- NOTE | 2016-06-21 11:39 | NUR ---
Social Work Continued Discharge Planning: DIAMOND acknowledged order for discharge for 06/20/16. Plan is SNF placement at [facility]. DIAMOND spoke to [facility] rep Zainab, to confirm bed availability status. Per rep no bed available at this time as a result to Flu. Per rep, bed to be available on Monday for patient and patient's . DIAMOND will continue to follow pending bed status. PLAN: Accepted at [facility], pending bed availability on Monday. DIAMOND to follow. Lio REGAN Addendum: 06/21/16 at 1357 by OLMAN YADAV Per Zainab bed to be available tomorrow. DIAMOND faxed clinicals to [facility]placed by [facility] Reina, [phone] [id number]. [phone] for initiation of auth request. DIAMOND also contacted [facility] and advised her of discharge for tomorrow. DIAMOND to follow to ensure auth Lio REGAN
--- NOTE | 2016-06-21 15:06 | PCM.PNMED ---
Subjective Date of Service Jun 21, 2016 Subjective Ray is doing well today, he has worked with physical therapy today and is unfortunately weak in the bilateral lower extremities, requiring assistance with transfers. Exam Vital Signs Vital Sign - Last Date Time Temp Pulse Resp B/P Pulse Ox O2 Delivery O2 Flow Rate FiO2 06/21/16 14:21 Nasal Cannula 2.00 06/21/16 12:45 36.8 64 16 138/80 95 Intake and Output 06/20/16 06/20/16 06/21/16 Cumulative From/Thru 15:00 23:00 07:00 06/13/16 13:27 - 06/21/16 06:14 Intake Total 1236 ml 200 ml 90457 ml Output Total 750 ml 400 ml 7517 ml Balance 486 ml -200 ml 92039 ml Intake Oral 1236 ml 200 ml 5548 ml IV Total 46924 ml Output Urine Total 750 ml 400 ml 7482 ml Estimated Blood Loss 35 ml # Voids 1 5 # Bowel Movements 0 Exam General: Resting comfortably in bed this morning with supplement oxygen via nasal cannula at 2L/h and oxygen saturation of 98%. Easily awoken. No acute distress. No conversational dyspnea or tripoding. Head: Normocephalic. Sclera anicteric. Moist mucus membranes, PERRLA Cardiac: RRR without murmur, rub, or gallop Lungs: Good inspiratory effort. No wheezes, rales, or rhonchi. Abdomen: Normoactive bowel tones. Soft nontender, nondistended Extremities: No cyanosis, clubbing, or pedal edema. Neuro: Alert and oriented 3, normal speech. psychiatric: Normal affect. Pleasant. Lab and Diagnostics Result Diagram: 06/21/16 0415 06/20/16 0505 X-Rays, CTs and MRIs Cardiac Echo Impressions Assessment & Plan Ray is an 89yo male with influenza A and pneumonia who had a ground level fall sustaining a left femoral neck fracture for which he has undergone repair. He has received a full 5 day course of Tamiflu and a 7day a course of ceftriaxone, and azithromycin. Hospital day #8 today. 1. Post ORIF of the left femoral neck - Orthopedic surgery has followed and he is okay to discharge to SNF once a bed is available - Physical therapy while inpatient - Plan to discharge to SNF when a bed is available for him as he has weakness due to the fracture, having been in bed for a full week, and #2 and #3 below 2. Community acquired pneumonia, present on admission and treated - A 7 day course of ceftriaxone and azithromycin has been completed - Incentive spirometer, encouraged the patient to do this hourly while awake 3. Influenza A, present on admission, resolved - Improve symptomatically - Completed a Tamiflu course. 4. Narrow complex tachycardia, currently is in sinus rhythm - CT angio of the chest revealed no pulmonary emboli, but there was evidence of broncho-pneumonia noted as seen on chest x-ray. - Echo showed normal systolic function with no significant abnormality. - Amiodarone 200 mg PO BID has been continued Dispo: Anticipate discharge to [facility] tomorrow as that is when a bed is anticipated to be available. VTE Prophylaxis: Sub-Q Enoxaparin, SCDs VTE Mechanical Devices: Intermittant Pneumatic CD Resuscitation Status: DNR/DNI:Do Not Resuscitate/Intubate Attending Statement The patient was seen and examined together with Dr. Hu on 06/21/2016 and I agree with the history, exam and plan as outlined in the note above. Keturah Hu DO Jun 21, 2016 15:06 Tate Mueller MD Jun 22, 2016 10:04
--- NOTE | 2016-06-21 16:05 | NUR ---
Evaluation completed. Please go to "Notes" then click on "Assessments and Notes" (bottom left corner of screen). Then select appropriate discipline tab on top of screen.
--- NOTE | 2016-06-21 19:21 | NUR ---
Pain, activity PRN Narco 1 tablet was given for L. hip pain. Narco was effective. Noted increased confusion in the early evening. Pt. was reoriented easily. He walked in room with PT. Pt. visited in [facility] as requested by him. He was transferred in a . Face mask applied to his face for infection control.
[2016-06-22] MEDS: Sodium Chloride LOK Flush 10 mL Syringe IV SCH ×2 (00:36→10:39)
[2016-06-22 05:04] VITALS: BP 143/87; PULSE 69; RESP 18; O2SAT 94
[2016-06-22] MEDS ORDERED: AMIO200T PO (08:08)
[2016-06-22] MEDS ORDERED: ENOX40DI8 SUBQ (08:08)
[2016-06-22] MEDS ORDERED: Bisacodyl RECTAL (08:08)
[2016-06-22] MEDS ORDERED: Acetaminophen PO (08:08)
[2016-06-22] MEDS ORDERED: METO25TA6 PO (08:08)
[2016-06-22] MEDS ORDERED: HYDR-4003 PO (08:08)
[2016-06-22] MEDS ORDERED: DOCU-41 PO (08:08)
--- NOTE | 2016-06-22 08:27 | PCM.DIMED ---
Discharge Instructions Date of Service Jun 22, 2016 Dates of Hospitalization Jun 13, 2016 at 16:52 Discharge Diagnosis Discharge Diagnosis Left femoral neck fracture s/p repair Community acquired pneumonia, present on admission and treated Influenza A, present on admission, treatment completed - Completed a full 10 dose course of Tamiflu. Narrow complex tachycardia, NSR at discharge Medication Instructions For the next 16 days, you need a once daily subcutaneous injection of Lovenox to prevent deep venous thrombosis( DVTs). Lovenox 40mg subcutaneous injection once daily for 16 days. The first dose at [facility] should be given on 06/23/16 as you have been given a dose this morning at the hospital. Following the 16 days of Lovenox treatment, you will need to take aspirin 81mg daily for 3 weeks. Starting 07/09/16, start aspirin 81mg by mouth once daily; continue this until 07/30/16. Given your heart rhythm: Take amiodarone 200mg by mouth twice daily. Metoprolol 12.5mg by mouth twice daily For pain: Take hydrocodone-acetaminophen 1-2 tablet by mouth every 4 hours as needed. Try to take this medication only when the pain is more than mild. The pain medication often causes constipation, to prevent constipation: Take docusate sodium 1 tablet by mouth twice daily, this may be taken with meals. Test Results Rapid influenza screen on 06/13/2016: Positive for influenza A, negative for influenza B Diet No restrictions Activity Other ([facility]ial[facility] physical therapy at [facility]) Call your provider Fever or Chills, Shortness of breath, Bleeding, Chest pain, Vomitting, Excessive diarrhea, Weakness (unilateral), Other (Excessive swelling or redness of the leg.) Patient Instructions Follow-up plan Please call to schedule, or have [facility] staff assist with scheduling, a 2week post operative visit with one of the physician assistants at the Orthopedic office for a wound check and staple removal. [facility] [address] [place] [address] You also need to have a 6 week post operative appointment with Dr Kelsey huang. If you have any concerns about your surgical wound, please contact the orthopedic office. You should follow up with your primary care physician in 1-2 weeks, please call to schedule this appointment. Follow-up Provider: Zaire Villasenor PA-C Follow-up with PCP in: 2 weeks (May be in 10-14 days from now. Appointment for a surgical wound check and staple removal.) Provider: Alex Cole MD Follow-up in: 6 weeks (Plan to have xrays done at this appointment) Mid-level Provider (F9): Eliud Boston MD Follow-up with Mid-level in: Other (1-2 weeks) Keturah Hu DO Jun 22, 2016 08:27
--- NOTE | 2016-06-22 08:27 | NUR ---
Pain Patient states hip pain is minimal, asked for Tylenol for pain at bedtime. Patient A&Ox3. Dressing clean dry and intact. Patient visited his on floor earlier in shift.
[2016-06-22 08:50] VITALS: BP 149/73; PULSE 68; RESP 13; O2SAT 96
[2016-06-22] MEDS: Senna-Docusate 8.6-50 mg Tablet PO SCH (09:20)
--- NOTE | 2016-06-22 11:25 | NUR ---
Social Work Continued Discharge Planning: Plan is SNF placement at [facility]. DIAMOND spoke to [facility] rep Zainab, who states that bed available today for transfer. SW received phone call from [facility] rep Reina, xt [phone] who states that patient accepted and auth approved for transfer. Rep states that contact to facility to be made regarding auth approval. UR specialist to coordinate transport for transfer today. PASSR completed. Patient and family made aware regarding both transfers. SW to follow. PLAN: [facility] rehab today, bed available. No other anticipated discharge needs identified at this time. DIAMOND to follow. Lio REGAN Addendum: 06/22/16 at 1452 by OLMAN HUITRON Transport arranged for order picker at 3:30pm. No other needs identified. Lio REGAN
[2016-06-22 14:07] VITALS: BP 132/73; PULSE 73; RESP 17; O2SAT 96
--- NOTE | 2016-06-22 14:57 | NUR ---
spiritual care: follow up brief conversational visit. reported on brief visit with pt's . pt glad for report, reflected more on his care/hospital stay and eagerness for discharge. pt and continue to receive [employer] operations worker visits per 's request.
[2016-06-22] MEDS: HYDROcodone-APAP 5-325 mg Tablet PO PRN (14:59)
--- NOTE | 2016-06-22 16:30 | PCM.DC.MED ---
Discharge Summary Date of Service Jun 22, 2016 Dates of Hospitalization Date of Hospital Admission Jun 13, 2016 at 16:52 Date of Discharge: Jun 22, 2016 Providers: Admitting Physician: Naveed Herrera MD Primary Care Physician: Eliud Boston MD Attending Physician: Naveed Herrera MD Diagnosis at Time of Discharge Diagnosis at Time of Discharge Left femoral neck fracture s/p repair Community acquired pneumonia, present on admission and treated Influenza A, present on admission, treatment completed - Completed a full 10 dose course of Tamiflu. Narrow complex tachycardia, NSR at discharge Procedures XRay, CTs & MRIs CXR on 06/13/16: FINDINGS: Surgical changes and devices: None. Lungs and pleura: No pleural effusions or pneumothorax. Interstitial prominence the lungs bilaterally right greater than left represent atypical pneumonia or chronic pulmonary fibrosis. Mediastinum: Mediastinal contours appear normal. Heart size is normal. Bones and chest wall: No suspicious bony lesions. Overlying soft tissues appear unremarkable. IMPRESSION: 1. Right greater than left interstitial prominence probable with atypical pneumonia versus pulmonary fibrosis. Please correlate with clinical data. 2. No acute traumatic injury identified. Dictated by: Charlotte Macedo MD, PhD on 06/13/2016 at 14:50 CT angio of the chest: FINDINGS: Image quality: Excellent. Pulmonary arteries: Pulmonary arteries are normal in size, and demonstrate no intraluminal filling defects to suggest central pulmonary embolism. Lungs and pleura: No pneumothorax. Small bilateral pleural effusions. Moderate right and mild left dependent air space opacity. Bilateral segmental and subsegmental mid and lower lung bronchial thickening. 8mm diameter subpleural nodule within the left upper lobe laterally. Mild mid and lower lung interstitial pulmonary opacity, likely chronic. Bilateral anterior and posterior pleural calcifications. Central and peripheral airways are patent. Mediastinum: Heart size is normal, without pericardial effusion. There is calcification of the coronary vasculature. 17 mm short axis subcarinal adenopathy. 19 mm short axis right hilar adenopathy. 17 mm short axis left hilar adenopathy. Thoracic aorta is normal in caliber and enhancement. Esophagus is normal in caliber, without hiatal hernia. Bones and chest wall: No suspicious bony lesions. Flowing anterior osteophytes within the mid and lower thoracic spine. Ribs and thoracic spine appear intact throughout. Thyroid gland is within normal limits as visualized. No axillary or supraclavicular adenopathy. Abdomen: Visualized upper abdominal solid organs appear normal in the early arterial phase of enhancement. IMPRESSION: 1. No pulmonary embolus. 2. Bilateral mid and lower lung bronchopneumonia. 3. Mediastinal and bilateral hilar adenopathy, presumably reactive. Followup chest CT with contrast in 3 months is recommended to ensure resolution, and to exclude the less likely possibility of underlying neoplasm. 4. 8mm diameter left upper lobe subpleural nodule, possibly related to scarring. Followup is recommended as below. 5. Coronary artery disease. 6. Asbestos related pleural disease. Fleischner Society criteria for SOLID lung nodule followup. Nodule size (mm)Low-risk patientHigh-risk [id number] follow-up neededFollow-up at 12 mo; if no change, no further follow-up>[id number] CT at 12 mo; if no change, no further follow-up needed.Initial follow-up CT at 6-12 mo, then 18-24 mo if no change. >6-8Initial follow-up CT at 6-12 mo, then 18-24 mo if no change. Initial follow-up CT at 3-6 mo, then 9-12 mo and 24 mo if no change. > 8Follow-up CT at 3, 9, 24 mo. Or PET and/or biopsy.Same as for low-risk pts. Dictated by: Maye Perez M.D. on 06/15/2016 at 13:01 Xray pelvis with lateral hip: FINDINGS: Bones: Transcervical left hip fracture is noted. The there is mild varus angulation and proximal displacement of the distal fracture fragment. Soft tissues: The visualized bowel gas pattern is normal. No suspicious soft tissue calcifications. IMPRESSION: Transcervical left hip fracture. Dictated by: Charlotte Macedo MD, PhD on 06/13/2016 at 14:49 Xray left hip, 2 view: FINDINGS: Bones: No significant change in alignment of subcapital left femoral neck fracture. Soft tissues: No suspicious soft tissue calcifications or masses. Vascular calcifications indicate atherosclerosis. IMPRESSION: Left subcapital femoral neck fracture. Dictated by: Rodolfo Marmolejo RRAdrián Interpreted: Geetha Quijano MD on 06/14/2016 at 9:44 Cardiac Echo Impression Hospital Course The following were addressed during this hospitalization: Ray is an 89yo male with influenza A and pneumonia who had a ground level fall sustaining a left femoral neck fracture for which he has undergone repair. He has received a full 5 day course of Tamiflu and a 7day a course of ceftriaxone, and azithromycin. . 1. Left femoral neck fracture s/p ORIF - Orthopedic surgery was initially delayed because of his respiratory status at admission with pneumonia and influenza, surgical repair performed on 06/17/16 - Physical therapy daily while inpatient in the post operative period - Pain management with acetaminophen and hydrocodone-acetaminophen 5/325mg tablets PRN with instructions not to exceed 4000mg of acetaminophen daily - For DVT prophylaxis, Lovenox 40mg subcutaneous injection given once daily, plan to continue for a total of 3 weeks postop; prescription provided - Discharged to SNF as he has weakness due to the fracture, having been in bed for a full week, and #2 and #3 below 2. Community acquired pneumonia, present on admission and treated - A 7 day course of ceftriaxone and azithromycin has been completed - Incentive spirometer used during this hospitalization, encouraged the patient to do this hourly while awake 3. Influenza A, present on admission, resolved - Improved greatly symptomatically - Completed a 5 day, 10 dose course of Tamiflu. 4. Narrow complex tachycardia, currently is in sinus rhythm - CT angio of the chest revealed no pulmonary emboli, but there was evidence of broncho-pneumonia noted as seen on chest x-ray. - Echo showed normal systolic function with no significant abnormality. - Amiodarone 200 mg PO BID given and the patient has been instructed to continue this medication at discharge with prescription provided 5. Pulmonary nodule: - Recommended CT chest follow up in 3months for an 8mm nodule - See CT angio of the chest report above. Exam Vital Signs (Last) Date Time Temp Pulse Resp B/P Pulse Ox O2 Delivery O2 Flow Rate FiO2 06/22/16 14:07 36.7 73 17 132/73 96 Room Air 06/22/16 08:50 2.00 Exam On the date of discharge: General: Resting comfortably in bed this morning with supplement oxygen via nasal cannula at 2L/h and oxygen saturation of 98%. Easily awoken. No acute distress. No conversational dyspnea or tripoding. Head: Normocephalic. Sclera anicteric. Moist mucus membranes, PERRLA Cardiac: RRR without murmur, rub, or gallop Lungs: Good inspiratory effort. No wheezes, rales, or rhonchi. Abdomen: Normoactive bowel tones. Soft nontender, nondistended Extremities: No cyanosis, clubbing, or pedal edema. Neuro: Alert and oriented 3, normal speech. Able to sit up unassisted though he does this slowly psychiatric: Normal affect. Pleasant. Test 06/13/16 13:40 06/14/16 02:35 06/14/16 17:56 06/15/16 08:46 Hemoglobin A1c 5.5% (4.8-5.6) Magnesium Level 1.8mg/dL (1.6-2.6) Pro-B-Type Natriuretic Peptide 904pg/mL (0-486) D-Dimer 14.7mg/L (<0.50) Hold Khan Top Tube Received (Received) Lactic Acid Level 0.8mmol/L (0.4-2.0) Test 06/16/16 01:05 06/16/16 06:00 06/16/16 07:29 06/17/16 05:15 Troponin T 0.010ug/L (0.0-0.011) Procalcitonin 1.18ng/mL (See Comment) Urine Color Yellow (YELLOW) Urine Appearance Clear (CLEAR,HAZY) Urine pH 6.0 (5.0-8.0) Urine Specific [place] 1.025 (1.003-1.035) Urine Protein Negativemg/dL (NEG,TRACE) Urine Glucose (UA) Negativemg/dL (NEGATIVE) Urine Ketones 40mg/dL (NEGATIVE) Urine Occult Blood Small (NEGATIVE) Urine Nitrite Negative (NEGATIVE) Urine Bilirubin Negative (NEGATIVE) Urine Urobilinogen Normalmg/dL (NORMAL) Urine Leukocyte Esterase Negative (NEGATIVE) Urine RBC 3-10/hpf (0-2) Urine WBC 0-5/hpf (0-5) Urine Epithelial Cells Occasional/hpf (NONE-MOD) Urine Crystals None seen (NONE SEEN) Urine Bacteria None/hpf (NONE-FEW) Urine Hyaline Casts None/lpf (NONE) Urine Granular Casts None seen (NONE SEEN) Urine Waxy Casts None seen (NONE SEEN) Urine Red Blood Cell Casts None seen (NONE SEEN) Urine White Blood Cell Casts None seen (NONE SEEN) Urine Mucus None seen (None Seen) Urine Trichomonas None seen (NONE SEEN) Urine Yeast None (NONE SEEN) Urinalysis Comment None Urine Culture Reflexed Not indicated Prothrombin Time 10.9sec (8.1-12.5) Prothromb Time International Ratio 1.02ratio Activated Partial Thromboplast Time 31.6sec (22.8-33.0) Test 06/18/16 05:58 06/20/16 05:05 06/21/16 04:15 Total Bilirubin 0.4mg/dL (0.0-1.2) Aspartate Amino Transf (AST/SGOT) 45U/L (0-50) Alanine Aminotransferase (ALT/SGPT) 20U/L (0-44) Alkaline Phosphatase 74U/L (25-160) Total Protein 5.0g/dL (6.4-8.4) Albumin 2.6g/dL (3.4-5.0) White Blood Count 6.0th/mm3 (3.8-10.1) Red Blood Count 3.48mil/mm3 (4.40-5.80) Mean Corpuscular Volume 95.7fL (81-100) Mean Corpuscular Hemoglobin 30.2pg (27.0-35.0) Mean Corpuscular Hemoglobin Concent 31.5% (32.0-37.0) Red Cell Distribution Width 12.7% (12.3-15.4) Platelet Count 160bil/L (150-400) Neutrophils (%) (Auto) 68.7% (40-74) Lymphocytes (%) (Auto) 19.6% (14-46) Monocytes (%) (Auto) 7.0% (4-12) Eosinophils (%) (Auto) 3.9% (0-5) Basophils (%) (Auto) 0.3% (0-3) Sodium Level 139mEq/L (134-144) Potassium Level 3.9mEq/L (3.5-5.2) Chloride Level 97mEq/L (97-108) Carbon Dioxide Level 35mmol/L (18-29) Blood Urea Nitrogen 9mg/dL (8-27) Creatinine 0.43mg/dL (0.76-1.27) Estimat Glomerular Filtration Rate 198mL/min (>59) Glucose Level 95mg/dL (60-99) Calcium Level 8.1mg/dL (8.5-10.1) Hemoglobin 10.6g/dL (13.8-17.2) Hematocrit 34.1% (41.0-50.0) Discharge Medications Discharge Medications Amiodarone (Amiodarone) 200 Mg Tablet 200 MG PO BID Prescribed by: MARGARETH HU DO Docusate Sodium (Colace) 100 Mg Capsule 100 MG PO BID Prescribed by: MARGARETH HU DO Enoxaparin Sodium (Enoxaparin Sodium) 40 Mg/0.4 Ml Syringe 40 MG SUBQ DAILY Prescribed by: MARGARETH HU DO Metoprolol Tartrate (Metoprolol Tartrate) 25 Mg Tablet 12.5 MG PO BID Prescribed by: MARGARETH HU DO As needed ([Acetaminophen]) 325 MG TABLET 650 MG PO Q6H PRN PRN For Mild Pain or Fever Prescribed by: MARGARETH HU DO ([Bisacodyl]) 10 MG SUPP 10 MG RECTAL DAILY PRN PRN For Constipation Prescribed by: MARGARETH HU DO Hydrocodone-Acetaminophen 5-325 mg (Hydrocodone-Acetaminophen 5-325 mg) 1 Each Tablet 1-2 TABLET PO Q4H PRN PRN For Moderate Pain Prescribed by: AMRGARETH HU DO Additional med instructions For the next 16 days, you need a once daily subcutaneous injection of Lovenox to prevent deep venous thrombosis( DVTs). Lovenox 40mg subcutaneous injection once daily for 16 days. The first dose at [facility] should be given on 06/23/16 as you have been given a dose this morning at the hospital. Following the 16 days of Lovenox treatment, you will need to take aspirin 81mg daily for 3 weeks. Starting 07/09/16, start aspirin 81mg by mouth once daily; continue this until 07/30/16. Given your heart rhythm: Take amiodarone 200mg by mouth twice daily. Metoprolol 12.5mg by mouth twice daily For pain: Take hydrocodone-acetaminophen 1-2 tablet by mouth every 4 hours as needed. Try to take this medication only when the pain is more than mild. The pain medication often causes constipation, to prevent constipation: Take docusate sodium 1 tablet by mouth twice daily, this may be taken with meals. Followup Plan Disposition: [facility] Follow-up plan Please call to schedule, or have [facility] staff assist with scheduling, a 2week post operative visit with one of the physician assistants at the Orthopedic office for a wound check and staple removal. [facility] [place] [address] You also need to have a 6 week post operative appointment with Dr Cole scheduled. If you have any concerns about your surgical wound, please contact the orthopedic office. You should follow up with your primary care physician in 1-2 weeks, please call to schedule this appointment. Discharge Diet: No restrictions Discharge Activity: Other ([facility]ial[facility] physical therapy at [facility]) Follow-up Provider: Zaire Villasenor PA-C Follow-up with PCP in: 2 weeks (May be in 10-14 days from now. Appointment for a surgical wound check and staple removal.) Provider: Alex Cole MD Follow-up in: 6 weeks (Plan to have xrays done at this appointment) Mid-level Provider: Eliud Boston MD Follow-up with Mid-level in: Other (1-2 weeks) Time spent 35 minutes Attending Statement The patient was seen and examined together with Dr. Hu on 06/22/2016 and I have added additional information to the note above. copies to: Eliud Boston MD; Alex Cole MD, Rachel M DO Jun 22, 2016 16:00 Tate Mueller MD Jun 23, 2016 11:02
--- NOTE | 2016-06-22 16:35 | NUR ---
Discharge [facility].
== END 2016-06-22 16:08 | DRG 480 ==
LOC: SED 13:26 → EDBD 13:26 → OSC 16:52
PROVIDERS: ADMIT Urology; ATTEND Urology
PROC: 0QS704Z Reposition Left Upper Femur with Internal Fixation Device, Open Approach (ICD-10-PCS; principal; 2016-06-17 10:00)
DX: S72.032A Displaced midcervical fracture of left femur, initial encounter for closed fracture (principal); J10.00 Influenza due to other identified influenza virus with unspecified type of pneumonia; J10.1 Influenza due to other identified influenza virus with other respiratory manifestations; W18.00XA Striking against unspecified object with subsequent fall, initial encounter; Y93.9 Activity, unspecified; Y92.9 Unspecified place or not applicable; Z66 Do not resuscitate; R00.0 Tachycardia, unspecified